=== PATIENT | male | born 1980 | race Caucasian/White ===

== ENCOUNTER 2022-02-06 22:43 | Emergency (ER) | payer MEDICAID, SELFPAY ==
--- NOTE | ~2022-02-06 | XR_ITS ---
EXAMINATION: XR CHEST CLINICAL INFORMATION: Altered mental status COMPARISON: 10/27/2015 TECHNIQUE: Frontal view of the chest was obtained. FINDINGS: No significant abnormality is noted involving the heart, lungs, mediastinum, bony thorax or soft tissues. XR/XR chest 1V IMPRESSION: Unremarkable examination.
--- NOTE | ~2022-02-06 | CT_ITS ---
EXAMINATION: CT HEAD WITHOUT CONTRAST CT CERVICAL SPINE WITHOUT CONTRAST CLINICAL INFORMATION: Fall. Altered mental status. COMPARISON: CT head 11/29/2019 TECHNIQUE: Imaging was performed from the skull base to vertex without intravenous administration of contrast. In addition, helical noncontrast CT imaging was acquired through the cervical spine and source images were reviewed along with axial reconstructions and sagittal and coronal MPRs. [This CT examination was performed using dose optimization techniques as appropriate, variously including the following: *Automated exposure control *Adjustment of mA and/or kV according to patient size (this includes techniques or standardized protocols for targeted exams where dose is matched to indication/reason for exam; i.e. extremities or head) *Use of iterative reconstruction technique] DLP: 1100 mGy-cm FINDINGS: HEAD: No intracranial mass, hemorrhage, or midline shift is visualized. The ventricles and sulci are proportional. No extra-axial collections are identified. Small volume of sinus mucosal disease in the posterior ethmoid sinuses. Mastoid air cells and middle ear cavities are normally aerated. CERVICAL SPINE: There is no evidence of acute cervical spine fracture. Vertebral bodies remain normal in height. Cervical vertebrae have normal alignment. There is multilevel degenerative spondylosis of the cervical spine with disc height narrowing and endplate spurs and facet joint arthrosis No pre- or paravertebral soft tissue abnormality is identified. Limited assessment of the lung apices is unremarkable. CT/CT cervical spine wo con IMPRESSION: 1. No acute intracranial pathology. 2. No CT evidence of acute cervical spine fracture or traumatic subluxation
--- NOTE | ~2022-02-06 | CT_ITS ---
EXAMINATION: CT HEAD WITHOUT CONTRAST CT CERVICAL SPINE WITHOUT CONTRAST CLINICAL INFORMATION: Fall. Altered mental status. COMPARISON: CT head 11/29/2019 TECHNIQUE: Imaging was performed from the skull base to vertex without intravenous administration of contrast. In addition, helical noncontrast CT imaging was acquired through the cervical spine and source images were reviewed along with axial reconstructions and sagittal and coronal MPRs. [This CT examination was performed using dose optimization techniques as appropriate, variously including the following: *Automated exposure control *Adjustment of mA and/or kV according to patient size (this includes techniques or standardized protocols for targeted exams where dose is matched to indication/reason for exam; i.e. extremities or head) *Use of iterative reconstruction technique] DLP: 1100 mGy-cm FINDINGS: HEAD: No intracranial mass, hemorrhage, or midline shift is visualized. The ventricles and sulci are proportional. No extra-axial collections are identified. Small volume of sinus mucosal disease in the posterior ethmoid sinuses. Mastoid air cells and middle ear cavities are normally aerated. CERVICAL SPINE: There is no evidence of acute cervical spine fracture. Vertebral bodies remain normal in height. Cervical vertebrae have normal alignment. There is multilevel degenerative spondylosis of the cervical spine with disc height narrowing and endplate spurs and facet joint arthrosis No pre- or paravertebral soft tissue abnormality is identified. Limited assessment of the lung apices is unremarkable. CT/CT head/brain wo con IMPRESSION: 1. No acute intracranial pathology. 2. No CT evidence of acute cervical spine fracture or traumatic subluxation
[2022-02-06 22:49] VITALS: BP 118/73; PULSE 112; RESP 10; TEMP 36.3; O2SAT 95
[2022-02-06 22:51] VITALS: BP 127/77; PULSE 142; O2SAT 95
[2022-02-06 22:55] VITALS: BP 118/73; PULSE 112; RESP 10; TEMP 36.6; O2SAT 95; BMI 23.1
--- NOTE | 2022-02-06 23:15 | ED_ITS ---
HPI - General Adult General Stated complaint: etoh Time Seen by Provider: 02/06/22 22:56 Related Data Allergies Allergy/AdvReac Type Severity Reaction Status Date / Time haloperidol [From HALDOL] Allergy Unknown UNKNOWN Unverified 05/06/20 17:23 Review of Systems Review of Systems: Constitutional : No Weight loss, No Fever, No Chills, No Fatigue, No Malaise ENT/Mouth : No sore throat, No Rhinorrhea Eyes: No Eye Pain, No Swelling, No Redness Cardiovascular : No Chest Pain, No SOB, No Dyspnea on Exertion, No Orthopnea, No Edema, No Palpitations Respiratory : No Cough, No Sputum, No Wheezing Gastrointestinal : No Nausea, No Vomiting, No Diarrhea, No Constipation, No abdominal Pain, No Hematochezia, No Melena Genitourinary : No Dysuria, No Urinary Frequency, No Hematuria, Musculoskeletal : No joint pain, No Myalgias, No Joint Swelling Skin : No Skin Lesions, No rash Neuro : No Weakness, No Numbness, No Dizziness, No Headache Psych : No Anxiety/Panic, No Depression Heme/Lymph: No Bruising, No Bleeding,No Lymphadenopathy Endocrine : No Polyuria, No Polydipsia All other systems reviewed and are negative Yes all other systems are reviewed and are negative [facility] Past Medical History Attestation statement: The following information was validated with the patient. Source: old records reviewed and nursing notes reviewed Physical Exam ED Vital Signs: Vital Signs - 24 hr 02/06/22 22:49 Temperature 97.4 F Pulse Rate 112 H Respiratory Rate 10 L Blood Pressure 118/73 Pulse Oximetry 95 Oxygen Delivery Method Room Air Patient is slightly tachycardic likely secondary to drug abuse. Appearance: Alert.? Oriented X3.? No acute distress.? Head: Normocephalic, atraumatic, no step-offs or deformities Eyes: Pupils equal, round and reactive to light.? ENT: Pharynx normal.? Neck: Normal inspection.? Neck supple.? CVS: Normal heart rate and rhythm.? Pulses normal.? Respiratory: No respiratory distress.? Breath sounds normal.? Abdomen: Soft and nontender.? Skin: Skin warm and dry.? Normal skin color.? Normal skin turgor.? Extremities: No lower extremity edema.? No calf ttp. 5/5 strength to bilateral upper and lower extremities Back: No midline tenderness, no C-spine tenderness, full range of motion, no CVA tenderness bilaterally Neuro: Oriented X 3.? No motor deficit.? No sensory deficit. CN 2-12 intact Medical Decision Making MDM Narrative Medical decision making narrative: [id number] Medical Records Medical records reviewed: Yes I reviewed the patient's medical records. Lab Data Lab results reviewed: Yes I reviewed the patient's lab results. Critical Care Time Critical Care Time Critical Care Time: No Discharge Plan Discharge Clinical Impression: Polysubstance abuse, Fall Patient Disposition: Home, Self-Care Instructions: Fall Prevention (ED), Polysubstance Abuse (ED) Additional Instructions: Take your medications as prescribed. If you were prescribed antibiotics today, it is important that you take your medication to their entirety, do not skip any doses, do not finish them early. Follow-up with your primary care provider this week. Return to the emergency department with new or worsening symptoms. Such as fevers, chills, chest pain, shortness of breath, nausea, vomiting, dizziness, headache, vision changes, lethargy In case of emergency call 911
--- NOTE | 2022-02-06 23:17 | ED.HA ---
HPI - Headache General Chief Complaint: ETOH/Substance Use Stated Complaint: etoh Time Seen by Provider: 02/06/22 22:56 Related Data Allergies Allergy/AdvReac Type Severity Reaction Status Date / Time haloperidol [From HALDOL] Allergy Unknown UNKNOWN Verified 02/07/22 01:08 [facility] Social History Social History Advance Directives: No Advance Directives Information Provided: No Physical Exam Vital Signs: Vital Signs: Last Vital Signs Temp 97.8 F 02/06/22 22:55 Pulse 89 02/07/22 01:24 Resp 12 02/07/22 01:24 BP 108/71 02/07/22 01:24 Pulse Ox 96 02/07/22 01:24 O2 Del Method 02/07/22 01:24 BMI result Body Mass Index 23.1 MDM - Headache Lab Data Result diagrams: 02/06/22 23:31 02/06/22 23:31 Labs: Lab Results 02/06/22 02/06/22 02/06/22 Range/Units 23:31 23:31 23:31 WBC 9.0 (4.8-10.8) X10*3/uL RBC 4.98 (4.60-5.80) X10*6/uL Hgb 14.3 (14.0-18.0) g/dl Hct 44.6 (42.0-52.0) % MCV 89.6 (80.0-98.0) fL MCH 28.7 (27.0-33.0) pg MCHC 32.1 (31.0-36.0) g/dl RDW 12.3 (11.0-16.0) % Plt Count 272 (160-400) X10*3/uL MPV 9.1 L (9.4-12.4) fL Immature Gran % (Auto) 0.2 (0.0-0.4) % Neut % (Auto) 38.8 L (45-73) % Lymph % (Auto) 51.2 H (20-40) % [place] % (Auto) 7.2 (2-11) % Eos % (Auto) 2.0 (0-4) % Baso % (Auto) 0.6 (0-2) % Lymph # (Auto) 4.6 (1.2-4.9) X10*3/uL [place] # (Auto) 0.7 (0.1-1.2) X10*3/uL Eos # (Auto) 0.2 (0.0-0.4) X10*3/uL Baso # (Auto) 0.1 (0.0-0.2) X10*3/uL Abs Immat Gran (auto) 0.02 (0.00-0.03) X10*3/uL Absolute Neuts (auto) 3.5 (2.0-8.3) x10*3/uL Absolute Nucleated RBC 0.000 (0.0-0.012) X10*3/uL Nucleated RBC % (auto) 0.0 (0.0-0.2) /100WBC Sodium 142 (135-145) mmol/L Potassium 4.7 (3.3-5.1) mmol/L Chloride 105 (96-108) mmol/L Carbon Dioxide 28 (22-29) mmol/L Anion Gap 14 (12-20) BUN 5 L (9-16) mg/dL Creatinine 1.12 (0.5-1.4) mg/dL Estim Creat Clear Calc TNP Estimated GFR > 60 Random Glucose 144 H (60-115) mg/dL Calcium 8.9 (8.4-10.2) mg/dL Magnesium 2.3 (1.6-2.6) mg/dL Total Bilirubin 0.2 (0.0-1.0) mg/dL AST 19 (5-37) U/L ALT 17 (0-40) U/L Alkaline Phosphatase 84 (39-117) U/L Total Creatine Kinase 162 (38-174) U/L Total Protein 7.5 (6.5-8.0) g/dL Albumin 4.6 (3.5-5.0) g/dL Ethyl Alcohol 262 mg/dL Discharge Plan Discharge Clinical Impression: Polysubstance abuse, Fall Patient Disposition: Home, Self-Care Instructions: Polysubstance Abuse (ED), Fall Prevention (ED) Additional Instructions: Take your medications as prescribed. If you were prescribed antibiotics today, it is important that you take your medication to their entirety, do not skip any doses, do not finish them early. Follow-up with your primary care provider this week. Return to the emergency department with new or worsening symptoms. Such as fevers, chills, chest pain, shortness of breath, nausea, vomiting, dizziness, headache, vision changes, lethargy In case of emergency call 911
[2022-02-06 23:35] LABS: MANUAL DIFF FLAG NO
[2022-02-06 23:37] LABS: Basophils Absolute Auto 0.1 X10*3/uL (0.0-0.2); Basophils Percent Auto 0.6 % (0-2); Eosinophils Absolute Auto 0.2 X10*3/uL (0.0-0.4); Hematocrit 44.6 % (42.0-52.0); Hemoglobin 14.3 g/dl (14.0-18.0); Imm Gran Abs Auto 0.02 X10*3/uL (0.00-0.03); Imm Gran Pct Auto 0.2 % (0.0-0.4); Lymphocytes Absolute Auto 4.6 X10*3/uL (1.2-4.9); Lymphocytes Percent Auto 51.2 % (20-40); Mean Corpuscular HGB Conc 32.1 g/dl (31.0-36.0); Mean Corpuscular Hemoglobin 28.7 pg (27.0-33.0); Mean Corpuscular Volume 89.6 fL (80.0-98.0); Mean Platelet Volume 9.1 fL (9.4-12.4); Monocytes Absolute Auto 0.7 X10*3/uL (0.1-1.2); Monocytes Percent Auto 7.2 % (2-11); Neutrophils Absolute Auto 3.5 x10*3/uL (2.0-8.3); Neutrophils Percent Auto 38.8 % (45-73); Platelet Count 272 X10*3/uL (160-400); Red Blood Count 4.98 X10*6/uL (4.60-5.80); Red Cell Distribution Width 12.3 % (11.0-16.0)
[2022-02-06 23:58] LABS: Ethanol 262 mg/dL
[2022-02-07] VITALS (7 sets, daily range): BP systolic 84–139; BP diastolic 51–84; PULSE 57–89; RESP 8–18; TEMP 36.8; O2SAT 94–100
[2022-02-07 00:02] LABS: Alanine Aminotransferase 17 U/L (0-40); Albumin Level 4.6 g/dL (3.5-5.0); Anion Gap 14 (12-20); Aspartate Amino Transferase 19 U/L (5-37); Bilirubin Total 0.2 mg/dL (0.0-1.0); Blood Urea Nitrogen 5 mg/dL (9-16); Calcium 8.9 mg/dL (8.4-10.2); Carbon Dioxide 28 mmol/L (22-29); Chloride 105 mmol/L (96-108); Estimated Glomerular Filt Rate > 60; Glucose Random 144 mg/dL (60-115); Magnesium 2.3 mg/dL (1.6-2.6); Potassium 4.7 mmol/L (3.3-5.1); Sodium 142 mmol/L (135-145); Total Protein 7.5 g/dL (6.5-8.0)
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
--- NOTE | 2022-02-07 00:07 | ECG_ITS ---
Test Reason : OVERDOSE Blood Pressure : / mmHG Vent. Rate : 085 BPM Atrial Rate : 085 BPM P-R Int : 202 ms QRS Dur : 096 ms QT Int : 350 ms P-R-T Axes : 073 077 067 degrees QTc Int : 416 ms Normal sinus rhythm Normal ECG When compared with ECG of 13-MAR-2013 09:17, Vent. rate has increased BY 34 BPM Referred By: Vu Willard Electronically Signed By:ERICK MOORE MD
--- NOTE | 2022-02-07 00:39 | PC.NURSE ---
pt family member called, notified pt. Pt refusing at this time for family members to have any information.
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
[2022-02-07 03:03] LABS: Appearance Urine CLEAR; Color Urine YELLOW; Glucose Urine UA NEG (NEG); Leukocyte Esterase Urine NEG (NEG); Nitrite Urine NEG (NEG); PH 5.5 (5.0-8.0); Specific Gravity - Urine >= 1.030 (1.005-1.025); Urine Blood NEG (NEG); Urine Ketones NEG (NEG); Urine Protein NEG (NEG-TRACE)
[2022-02-07 03:22] LABS: Amphetamine Screen Urine Not Detected (Not Detect); Barbiturates, Urine Not Detected (Not Detect); Benzodiazepines Screen Urine Not Detected (Not Detect); Cannabinoid Screen Urine Not Detected (Not Detect); Cocaine Screen Urine POSITIVE (Not Detect); Fentanyl, urine POSITIVE (Not Detect); Opiate Screen Urine POSITIVE (Not Detect); Phencyclidine Screen Urine Not Detected (Not Detect)
[2022-02-07] MEDS: 0.9 % Sodium Chloride 1,000 ML 999 ML IV (06:34)
[2022-02-07 07:02] LABS: COVID-19 Test Negative (Negative)
--- NOTE | 2022-02-07 08:12 | PC.NURSE ---
Pt resting comfortably at this time, no complaints of pain, BP on the lower side, but consistent trends. VS as charted, call cespedes within reach. Will continue to monitor.
[2022-02-07 12:16] LABS: Alkaline Phosphatase 84 U/L (39-117)
== END 2022-02-07 13:47 | disposition home or self-care (01) ==
PROVIDERS: Emergency Medicine; Physician Assistant; Emergency Provider Internal Medicine
DX: F10.129 Alcohol abuse with intoxication, unspecified (principal); R41.82 Altered mental status, unspecified; M54.2 Cervicalgia; R51.9 Headache, unspecified; Y90.8 Blood alcohol level of 240 mg/100 ml or more; Z20.822 Contact with and (suspected) exposure to COVID-19; Z71.41 Alcohol abuse counseling and surveillance of alcoholic; Z79.899 Other long term (current) drug therapy
CPT/HCPCS: 36415; 70450; 71045; 72125; 80053; 80307; 81003; 82077; 82550; 83735; 85025; 87635; 93005; 99285

== ENCOUNTER 2022-11-11 20:00 | Emergency (ER) | payer MEDICAID, SELFPAY ==
--- NOTE | ~2022-11-11 | XR_ITS ---
EXAMINATION: XR CHEST CLINICAL INFORMATION: Chest pain COMPARISON: 02/07/2022 TECHNIQUE: Frontal view of the chest was obtained. FINDINGS: No significant abnormality is noted involving the heart, lungs, mediastinum, bony thorax or soft tissues. XR/XR chest 1V IMPRESSION: Unremarkable examination.
[2022-11-11 20:10] VITALS: BP 107/69; PULSE 91; RESP 20; TEMP 36.9; O2SAT 97; BMI 22.3
--- NOTE | 2022-11-11 20:13 | ED.URI ---
HPI - URI/Sore Throat General Chief Complaint: Dyspnea <SHIV Joseph - Last Filed: 11/11/22 20:16> Stated Complaint: SOB , Fatigue <SHIV Joseph - Last Filed: 11/11/22 20:16> Time Seen by Provider: 11/11/22 22:26 <SHIV Joseph - Last Filed: 11/11/22 20:16> Source: patient <Harry Carrion MD - Last Filed: 11/11/22 23:05> Mode of arrival: ambulatory <Harry Carrion MD - Last Filed: 11/11/22 23:05> Limitations: no limitations <Harry Carrion MD - Last Filed: 11/11/22 23:05> History of Present Illness HPI Narrative: 42-year-old male with no major medical problems currently on Suboxone presents with shortness of breath, cough and pleuritic chest pain for 2-3 weeks. Symptoms have been constant. They are not getting worse. He denies any chest pain with exertion. He denies any orthopnea, PND, lower extremity edema. He denies any recent trauma, surgeries or immobilization. He has no history of PE or DVT. He denies any fever. He does have a slight cough with yellow mucus production. There is no hemoptysis patient describes the symptoms as moderate to severe in nature. There is no clear relieving or exacerbating features. Patient denies any sick contacts. <Harry Carrion MD - Last Filed: 11/11/22 23:05> Related Data Home Medications: Previous Rx's Medication Instructions Recorded azithromycin 250 mg tablet 250 mg PO DAILY 4 days #4 tabs 11/11/22 <SHIV Joseph - Last Filed: 11/11/22 20:16> Allergies/Adverse Reactions: Allergies Allergy/AdvReac Type Severity Reaction Status Date / Time haloperidol [From HALDOL] Allergy Unknown UNKNOWN Verified 05/31/22 15:37 <SHIV Joseph - Last Filed: 11/11/22 20:16> [facility] Social History Social History: Social History Alcohol intake: current Alcohol intake frequency: 0-2 drinks per day Alcohol type: hard liquor Patient Tobacco Use Status: Current everyday Tobacco user Advance Directives: No Advance Directives Information Provided: No <SHIV Joseph - Last Filed: 11/11/22 20:16> Physical Exam Vital Signs: Vital Signs: Last Vital Signs Temp 98.4 F 11/11/22 20:10 Pulse 91 11/11/22 20:10 Resp 20 11/11/22 20:10 BP 107/69 11/11/22 20:10 Pulse Ox 97 11/11/22 20:10 O2 Del Method Room Air 11/11/22 20:10 BMI result Body Mass Index 22.3 <SHIV Joseph - Last Filed: 11/11/22 20:16> Vital Signs: Last Vital Signs Temp 98.4 F 11/11/22 20:10 Pulse 91 11/11/22 20:10 Resp 20 11/11/22 20:10 BP 107/69 11/11/22 20:10 Pulse Ox 97 11/11/22 20:10 O2 Del Method Room Air 11/11/22 20:10 BMI result Body Mass Index 22.3 <Harry Carrion MD - Last Filed: 11/11/22 23:05> GEN: Well developed, no acute distress, alert, oriented HEENT: Normocephalic, atraumatic, normal external ears, nose appears normal, no oropharyngeal edema or exudates Eyes: Normal to appearance Neck: Supple, no lymphadenopathy Respiratory: Talks in complete sentences, no respiratory distress, clear to auscultation bilaterally Cardiovascular: Regular rate and rhythm, no murmurs rubs or gallops Abdomen: Soft, nontender, nondistended, no guarding, no rebound Back: No CVA tenderness Extremities: No clubbing cyanosis or edema Neurologic: No focal neurologic deficits, cranial nerves 2-12 intact, strength is 5/5 bilaterally, gait normal Skin: No rash <Harry Carrion MD - Last Filed: 11/11/22 23:05> Course Course Course Narrative: RME--42yo M w/PMHx Hep C, cigarette smoker, c/o chest pain, SOB, and fatigue x2 weeks. Reports shortness of breath worse when lying flat. Denies pedal edema, fever Vital signs stable, nontoxic appearing, ambulating with steady gait EKG, labs, CXR, COVID/flu ordered <SHIV Joseph - Last Filed: 11/11/22 20:16> Reevaluation(s) Reevaluation #1: Patient's workup is complete. He has no evidence of pneumonia. He has negative serology for flu or COVID. Patient does have a mildly elevated white blood cell count. Given 2-3 weeks of symptoms, would recommend treating with oral antibiotics. Patient is agreeable to this. Doubt PE or DVT. He has negative PERC criteria. He has no lower extremity edema. Patient has no evidence of CHF. I discussed all results with the patient. I discussed discharge instructions. All questions were addressed and answered. <Harry Carrion MD - Last Filed: 11/11/22 23:05> Time: 23:01 <Harry Carrion MD - Last Filed: 11/11/22 23:05> Medical Decision Making Medical Decision Making [facility] Narrative: 42-year-old male presents with cough and shortness of breath pleuritic chest pain for 2-3 weeks. His examination is benign. He is hemodynamically stable with normal oxygen saturation on room air. He has nonlabored respirations. Most likely, patient has bronchitis given the duration of the symptoms. Patient will have a chest x-ray to rule out pneumonia. Will obtain laboratory analysis to rule out leukocytosis or other metabolic abnormality. Will check COVID and influenza. <Harry Carrion MD - Last Filed: 11/11/22 23:05> Differential Diagnosis Differential Diagnoses: The differential diagnosis associated with the presentation includes (Bronchitis, viral infection, COVID, influenza, parainfluenza, CHF) <Harry Carrion MD - Last Filed: 11/11/22 23:05> Bronchitis <Harry Carrion MD - Last Filed: 11/11/22 23:05> Admission/Observation Consideration of admission/observation: Escalation of care including admission/observation considered <Harry Carrion MD - Last Filed: 11/11/22 23:05> Lab Data [facility] Lab Attestation statement: I reviewed the patient's lab results. <Harry Carrion MD - Last Filed: 11/11/22 23:05> Result Diagrams: 11/11/22 21:14 11/11/22 21:14 <SHIV Joseph - Last Filed: 11/11/22 20:16> Labs: Lab Results 03/11/11/22 11/11/22 Range/Units 21:14 21:14 21:14 WBC 13.2 H (4.8-10.8) X10*3/uL RBC 5.21 (4.60-5.80) X10*6/uL Hgb 14.8 (14.0-18.0) g/dl Hct 45.4 (42.0-52.0) % MCV 87.1 (80.0-98.0) fL MCH 28.4 (27.0-33.0) pg MCHC 32.6 (31.0-36.0) g/dl RDW 12.2 (11.0-16.0) % Plt Count 265 (160-400) X10*3/uL MPV 9.6 (9.4-12.4) fL Immature Gran % (Auto) 0.2 (0.0-0.4) % Neut % (Auto) 70.8 (45-73) % Lymph % (Auto) 18.2 L (20-40) % [place] % (Auto) 7.5 (2-11) % Eos % (Auto) 2.9 (0-4) % Baso % (Auto) 0.4 (0-2) % Lymph # (Auto) 2.4 (1.2-4.9) X10*3/uL [place] # (Auto) 1.0 (0.1-1.2) X10*3/uL Eos # (Auto) 0.4 (0.0-0.4) X10*3/uL Baso # (Auto) 0.1 (0.0-0.2) X10*3/uL Abs Immat Gran (auto) 0.03 (0.00-0.03) X10*3/uL Absolute Neuts (auto) 9.4 H (2.0-8.3) x10*3/uL Absolute Nucleated RBC 0.000 (0.0-0.012) X10*3/uL Nucleated RBC % (auto) 0.0 (0.0-0.2) /100WBC Sodium 141 (135-145) mmol/L Potassium 4.6 (3.3-5.1) mmol/L Chloride 105 (96-108) mmol/L Carbon Dioxide 27 (22-29) mmol/L Anion Gap 14 (12-20) BUN 19 H (9-16) mg/dL Creatinine 1.11 (0.5-1.4) mg/dL Estim Creat Clear Calc 87.1 Estimated GFR > 60 Random Glucose 96 (60-115) mg/dL Calcium 9.6 D (8.4-10.2) mg/dL Total Bilirubin 1.3 H (0.0-1.0) mg/dL Direct Bilirubin 0.3 (0.0-0.5) mg/dL AST 14 (5-37) U/L ALT 13 (0-40) U/L Alkaline Phosphatase 74 (39-117) U/L Troponin I High Sens 4.3 (<3.5-35.0) ng/L B-Natriuretic Peptide (<100) pg/mL Total Protein 7.5 (6.5-8.0) g/dL Albumin 4.8 (3.5-5.0) g/dL COVID-19 (AZAR) (Negative) COVID-19 Clin Com Influenza Type A (CARMEN) (Negative) Influenza Type B (CARMEN) (Negative) Influenza A & B Note 11/11/22 11/11/22 11/11/22 Range/Units 21:14 21:14 21:14 WBC (4.8-10.8) X10*3/uL RBC (4.60-5.80) X10*6/uL Hgb (14.0-18.0) g/dl Hct (42.0-52.0) % MCV (80.0-98.0) fL MCH (27.0-33.0) pg MCHC (31.0-36.0) g/dl RDW (11.0-16.0) % Plt Count (160-400) X10*3/uL MPV (9.4-12.4) fL Immature Gran % (Auto) (0.0-0.4) % Neut % (Auto) (45-73) % Lymph % (Auto) (20-40) % [place] % (Auto) (2-11) % Eos % (Auto) (0-4) % Baso % (Auto) (0-2) % Lymph # (Auto) (1.2-4.9) X10*3/uL [place] # (Auto) (0.1-1.2) X10*3/uL Eos # (Auto) (0.0-0.4) X10*3/uL Baso # (Auto) (0.0-0.2) X10*3/uL Abs Immat Gran (auto) (0.00-0.03) X10*3/uL Absolute Neuts (auto) (2.0-8.3) x10*3/uL Absolute Nucleated RBC (0.0-0.012) X10*3/uL Nucleated RBC % (auto) (0.0-0.2) /100WBC Sodium (135-145) mmol/L Potassium (3.3-5.1) mmol/L Chloride (96-108) mmol/L Carbon Dioxide (22-29) mmol/L Anion Gap (12-20) BUN (9-16) mg/dL Creatinine (0.5-1.4) mg/dL Estim Creat Clear Calc Estimated GFR Random Glucose (60-115) mg/dL Calcium (8.4-10.2) mg/dL Total Bilirubin (0.0-1.0) mg/dL Direct Bilirubin (0.0-0.5) mg/dL AST (5-37) U/L ALT (0-40) U/L Alkaline Phosphatase (39-117) U/L Troponin I High Sens (<3.5-35.0) ng/L B-Natriuretic Peptide < 10 (<100) pg/mL Total Protein (6.5-8.0) g/dL Albumin (3.5-5.0) g/dL COVID-19 (AZAR) Negative (Negative) COVID-19 Clin Com See Note Influenza Type A (CARMEN) Negative (Negative) Influenza Type B (CARMEN) Negative (Negative) Influenza A & B Note See Note <SHIV Joseph - Last Filed: 11/11/22 20:16> Lab Results 11/11/22 11/11/22 11/11/22 Range/Units 21:14 21:14 21:14 WBC 13.2 H (4.8-10.8) X10*3/uL RBC 5.21 (4.60-5.80) X10*6/uL Hgb 14.8 (14.0-18.0) g/dl Hct 45.4 (42.0-52.0) % MCV 87.1 (80.0-98.0) fL MCH 28.4 (27.0-33.0) pg MCHC 32.6 (31.0-36.0) g/dl RDW 12.2 (11.0-16.0) % Plt Count 265 (160-400) X10*3/uL MPV 9.6 (9.4-12.4) fL Immature Gran % (Auto) 0.2 (0.0-0.4) % Neut % (Auto) 70.8 (45-73) % Lymph % (Auto) 18.2 L (20-40) % [place] % (Auto) 7.5 (2-11) % Eos % (Auto) 2.9 (0-4) % Baso % (Auto) 0.4 (0-2) % Lymph # (Auto) 2.4 (1.2-4.9) X10*3/uL [place] # (Auto) 1.0 (0.1-1.2) X10*3/uL Eos # (Auto) 0.4 (0.0-0.4) X10*3/uL Baso # (Auto) 0.1 (0.0-0.2) X10*3/uL Abs Immat Gran (auto) 0.03 (0.00-0.03) X10*3/uL Absolute Neuts (auto) 9.4 H (2.0-8.3) x10*3/uL Absolute Nucleated RBC 0.000 (0.0-0.012) X10*3/uL Nucleated RBC % (auto) 0.0 (0.0-0.2) /100WBC Sodium 141 (135-145) mmol/L Potassium 4.6 (3.3-5.1) mmol/L Chloride 105 (96-108) mmol/L Carbon Dioxide 27 (22-29) mmol/L Anion Gap 14 (12-20) BUN 19 H (9-16) mg/dL Creatinine 1.11 (0.5-1.4) mg/dL Estim Creat Clear Calc 87.1 Estimated GFR > 60 Random Glucose 96 (60-115) mg/dL Calcium 9.6 D (8.4-10.2) mg/dL Total Bilirubin 1.3 H (0.0-1.0) mg/dL Direct Bilirubin 0.3 (0.0-0.5) mg/dL AST 14 (5-37) U/L ALT 13 (0-40) U/L Alkaline Phosphatase 74 (39-117) U/L Troponin I High Sens 4.3 (<3.5-35.0) ng/L B-Natriuretic Peptide (<100) pg/mL Total Protein 7.5 (6.5-8.0) g/dL Albumin 4.8 (3.5-5.0) g/dL COVID-19 (AZAR) (Negative) COVID-19 Clin Com Influenza Type A (CARMEN) (Negative) Influenza Type B (CARMEN) (Negative) Influenza A & B Note 11/11/22 11/11/22 11/11/22 Range/Units 21:14 21:14 21:14 WBC (4.8-10.8) X10*3/uL RBC (4.60-5.80) X10*6/uL Hgb (14.0-18.0) g/dl Hct (42.0-52.0) % MCV (80.0-98.0) fL MCH (27.0-33.0) pg MCHC (31.0-36.0) g/dl RDW (11.0-16.0) % Plt Count (160-400) X10*3/uL MPV (9.4-12.4) fL Immature Gran % (Auto) (0.0-0.4) % Neut % (Auto) (45-73) % Lymph % (Auto) (20-40) % [place] % (Auto) (2-11) % Eos % (Auto) (0-4) % Baso % (Auto) (0-2) % Lymph # (Auto) (1.2-4.9) X10*3/uL [place] # (Auto) (0.1-1.2) X10*3/uL Eos # (Auto) (0.0-0.4) X10*3/uL Baso # (Auto) (0.0-0.2) X10*3/uL Abs Immat Gran (auto) (0.00-0.03) X10*3/uL Absolute Neuts (auto) (2.0-8.3) x10*3/uL Absolute Nucleated RBC (0.0-0.012) X10*3/uL Nucleated RBC % (auto) (0.0-0.2) /100WBC Sodium (135-145) mmol/L Potassium (3.3-5.1) mmol/L Chloride (96-108) mmol/L Carbon Dioxide (22-29) mmol/L Anion Gap (12-20) BUN (9-16) mg/dL Creatinine (0.5-1.4) mg/dL Estim Creat Clear Calc Estimated GFR Random Glucose (60-115) mg/dL Calcium (8.4-10.2) mg/dL Total Bilirubin (0.0-1.0) mg/dL Direct Bilirubin (0.0-0.5) mg/dL AST (5-37) U/L ALT (0-40) U/L Alkaline Phosphatase (39-117) U/L Troponin I High Sens (<3.5-35.0) ng/L B-Natriuretic Peptide < 10 (<100) pg/mL Total Protein (6.5-8.0) g/dL Albumin (3.5-5.0) g/dL COVID-19 (AZAR) Negative (Negative) COVID-19 Clin Com See Note Influenza Type A (CARMEN) Negative (Negative) Influenza Type B (CARMEN) Negative (Negative) Influenza A & B Note See Note <Harry Carrion MD - Last Filed: 11/11/22 23:05> Independent Interpretation I performed an independent interpretation of an: EKG (Normal sinus rhythm heart rate 58, normal intervals, RSR prime, early repolarization, no acute ST elevations or depressions) and Plain X-Ray (Chest: No acute cardiopulmonary disease) <Harry Carrion MD - Last Filed: 11/11/22 23:05> Radiology Impression Discussion of test interpretation with radiology: I have reviewed the radiologist's reading. ( XR/XR chest 1V IMPRESSION: Unremarkable examination. Dictated By:Regino Hernandezigned By:<Electronically signed by Regino Hernandez MD in [place]>11/11/222038) <Harry Carrion MD - Last Filed: 11/11/22 23:05> Prescription Management I considered prescription management with: Antibiotic <Harry Carrion MD - Last Filed: 11/11/22 23:05> Discharge Plan Discharge Clinical Impression: Bronchitis <SHIV Joseph - Last Filed: 11/11/22 20:16> Patient Disposition: Home, Self-Care <SHIV Joseph - Last Filed: 11/11/22 20:16> Instructions: Acute Bronchitis (ED) <SHIV Joseph - Last Filed: 11/11/22 20:16> Prescriptions: New azithromycin 250 mg tablet 250 mg PO DAILY 4 Days Qty: 4 0RF Rx Instructions: start on day 2 of therapy <SHIV Joseph - Last Filed: 11/11/22 20:16> Print Language: [place] Citizen <SHIV Joseph - Last Filed: 11/11/22 20:16>
--- NOTE | 2022-11-11 20:14 | ECG_ITS ---
Test Reason : SHORTNESS OF BREATH Blood Pressure : / mmHG Vent. Rate : 058 BPM Atrial Rate : 058 BPM P-R Int : 176 ms QRS Dur : 092 ms QT Int : 374 ms P-R-T Axes : 080 082 073 degrees QTc Int : 367 ms Sinus bradycardia Otherwise normal ECG When compared with ECG of 07-FEB-2022 00:11, No significant change was found Referred By: Lia Weber Electronically Signed By:ERICK MOORE MD
[2022-11-11 21:20] LABS: MANUAL DIFF FLAG NO
[2022-11-11 21:30] LABS: Basophils Absolute Auto 0.1 X10*3/uL (0.0-0.2); Basophils Percent Auto 0.4 % (0-2); Eosinophils Absolute Auto 0.4 X10*3/uL (0.0-0.4); Eosinophils Percent Auto 2.9 % (0-4); Hematocrit 45.4 % (42.0-52.0); Hemoglobin 14.8 g/dl (14.0-18.0); Imm Gran Abs Auto 0.03 X10*3/uL (0.00-0.03); Imm Gran Pct Auto 0.2 % (0.0-0.4); Lymphocytes Absolute Auto 2.4 X10*3/uL (1.2-4.9); Lymphocytes Percent Auto 18.2 % (20-40); Mean Corpuscular HGB Conc 32.6 g/dl (31.0-36.0); Mean Corpuscular Hemoglobin 28.4 pg (27.0-33.0); Mean Corpuscular Volume 87.1 fL (80.0-98.0); Mean Platelet Volume 9.6 fL (9.4-12.4); Monocytes Percent Auto 7.5 % (2-11); Neutrophils Absolute Auto 9.4 x10*3/uL (2.0-8.3); Neutrophils Percent Auto 70.8 % (45-73); Platelet Count 265 X10*3/uL (160-400); Red Blood Count 5.21 X10*6/uL (4.60-5.80); Red Cell Distribution Width 12.2 % (11.0-16.0); White Blood Count 13.2 X10*3/uL (4.8-10.8)
[2022-11-11 21:40] LABS: Alanine Aminotransferase 13 U/L (0-40); Albumin Level 4.8 g/dL (3.5-5.0); Alkaline Phosphatase 74 U/L (39-117); Anion Gap 14 (12-20); Aspartate Amino Transferase 14 U/L (5-37); Bilirubin Direct 0.3 mg/dL (0.0-0.5); Bilirubin Total 1.3 mg/dL (0.0-1.0); Blood Urea Nitrogen 19 mg/dL (9-16); Calcium 9.6 mg/dL (8.4-10.2); Carbon Dioxide 27 mmol/L (22-29); Chloride 105 mmol/L (96-108); Creatinine Clr Calc Pharmacy 87.1; Estimated Glomerular Filt Rate > 60; Glucose Random 96 mg/dL (60-115); Potassium 4.6 mmol/L (3.3-5.1); Sodium 141 mmol/L (135-145); Total Protein 7.5 g/dL (6.5-8.0)
[2022-11-11 21:46] LABS: B Type Natriuretic Peptide < 10 pg/mL (<100); Troponin-I High Sensitivity 4.3 ng/L (<3.5-35.0)
[2022-11-11 22:07] LABS: COVID-19 Test Negative (Negative); IDNOW Serial# 08D9AD1C; IDNOW Serial# BCCEAD1C; Influenza A Negative (Negative); Influenza B2 Negative (Negative)
[2022-11-11 23:09] VITALS: BP 106/77; PULSE 83; RESP 12; TEMP 36.7; O2SAT 95
[2022-11-11] MEDS: Azithromycin 500 MG TABLET PO (23:13)
== END 2022-11-11 23:33 | disposition home or self-care (01) ==
PROVIDERS: Physician Assistant; Emergency Provider Emergency Medicine
DX: J40 Bronchitis, not specified as acute or chronic (principal); Z20.822 Contact with and (suspected) exposure to COVID-19; R06.02 Shortness of breath; F11.20 Opioid dependence, uncomplicated
CPT/HCPCS: 71045; 80048; 80076; 83880; 84484; 85025; 87502; 87635; 93005; 99283; 99284

== ENCOUNTER 2023-04-10 14:10 | Outpatient (REF) | payer MEDICAID, SELFPAY ==
[2023-04-10 16:51] LABS: Alanine Aminotransferase 17 U/L (0-40); Albumin Level 4.3 g/dL (3.5-5.0); Alkaline Phosphatase 73 U/L (39-117); Aspartate Amino Transferase 15 U/L (5-37); Bilirubin Direct 0.1 mg/dL (0.0-0.5); Bilirubin Total 0.6 mg/dL (0.0-1.0); Total Protein 7.5 g/dL (6.5-8.0)
[2023-04-11 03:58] LABS: HIV AB/AG Nonreactive (Nonreactive); HIV Num 1 0.05 S/CO (0.00-0.99)
[2023-04-11 04:01] LABS: ~HepC Num1 14.65 S/CO (0.00-0.79); ~Hepatitis C Antibody Reactive (Nonreactive)
[2023-04-11 04:11] LABS: Syphilis Screen Nonreactive (Nonreactive)
[2023-04-12 20:34] LABS: TS Negative Control Passed; TS Panel A 0; TS Panel B 6; TS Positive Control Passed; TSpotTB Borderline (Negative)
[2023-04-13 15:48] LABS: HCV Log PCR <1.18 NOT DETECTED Log IU/mL (NOT DETECTED); HepC Viral Load <15 NOT DETECTED IU/mL (NOT DETECTED)
== END 2023-04-10 14:11 | disposition home or self-care (01) ==
LOC: HO.HHCL 14:10
PROVIDERS: Visit Provider Emergency Medicine
DX: F11.20 Opioid dependence, uncomplicated (principal)
CPT/HCPCS: 36415; 80076; 86481; 86780; 86803; 87389; 87522

== ENCOUNTER 2023-04-25 00:05 | Emergency (ER) | payer MEDICAID, SELFPAY ==
[2023-04-25 00:28] VITALS: BP 106/72; PULSE 64; RESP 20; TEMP 36.6; O2SAT 98; BMI 28.3
[2023-04-25 00:52] LABS: Hemoglobin 13.3 g/dl (14.0-18.0); Mean Corpuscular HGB Conc 31.7 g/dl (31.0-36.0); Mean Corpuscular Hemoglobin 28.1 pg (27.0-33.0); Mean Corpuscular Volume 88.8 fL (80.0-98.0); Mean Platelet Volume 9.4 fL (9.4-12.4); Platelet Count 249 X10*3/uL (160-400); Red Blood Count 4.73 X10*6/uL (4.60-5.80); Red Cell Distribution Width 12.5 % (11.0-16.0)
[2023-04-25 00:58] LABS: Appearance Urine Clear; Color Urine Yellow; Glucose Urine UA Negative (Negative); Leukocyte Esterase Urine Negative (Negative); Nitrite Urine Negative (Negative); PH 5.5 (5.0-9.0); Urine Blood Negative (Negative); Urine Ketones Negative (Negative); Urine Protein Negative (Neg-Trace)
[2023-04-25 01:04] LABS: Bacteria Urine None Seen (None Seen); Hyaline Casts Urine 0-2 /LPF (0-2); RBC Urine 0-2 /HPF (0-2); Squamous Epithelial Cell Urine 0-2 /HPF (0-2); WBC Urine 0-5 /HPF (0-5)
[2023-04-25 01:07] LABS: Amphetamine Screen Urine Not Detected (Not Detect); Barbiturates, Urine Not Detected (Not Detect); Benzodiazepines Screen Urine Not Detected (Not Detect); Cannabinoid Screen Urine Not Detected (Not Detect); Cocaine Screen Urine Not Detected (Not Detect); Fentanyl, urine Not Detected (Not Detect); Opiate Screen Urine Not Detected (Not Detect); Phencyclidine Screen Urine Not Detected (Not Detect)
[2023-04-25 01:15] LABS: Alanine Aminotransferase 12 U/L (0-40); Albumin Level 4.2 g/dL (3.5-5.0); Alkaline Phosphatase 67 U/L (39-117); Anion Gap 10 (12-20); Aspartate Amino Transferase 16 U/L (5-37); Bilirubin Total 0.3 mg/dL (0.0-1.0); Blood Urea Nitrogen 14 mg/dL (9-16); Carbon Dioxide 29 mmol/L (22-29); Chloride 106 mmol/L (96-108); Creatinine Clr Calc Pharmacy 91.2; Estimated Glomerular Filt Rate > 60; Glucose Random 103 mg/dL (60-115); Lipase 14 U/L (8-78); Potassium 4.1 mmol/L (3.3-5.1); Sodium 141 mmol/L (135-145)
== END 2023-04-25 06:16 | disposition left against medical advice (07) ==
PROVIDERS: Emergency Provider Emergency Medicine
DX: R10.9 Unspecified abdominal pain (principal)
CPT/HCPCS: 36415; 80053; 80307; 81001; 83690; 85027; 99282; 99283

== ENCOUNTER 2023-07-03 14:07 | Outpatient (REF) | payer MEDICAID, SELFPAY ==
[2023-07-06 08:53] LABS: TS Negative Control Passed; TS Panel A 0; TS Panel B 0; TS Positive Control Passed; TSpotTB Negative (Negative)
== END 2023-07-03 14:08 | disposition home or self-care (01) ==
LOC: HO.HHCL 14:07
PROVIDERS: Visit Provider Emergency Medicine
DX: Z11.1 Encounter for screening for respiratory tuberculosis (principal); F11.20 Opioid dependence, uncomplicated
CPT/HCPCS: 36415; 86481

== ENCOUNTER 2023-09-21 11:24 | Outpatient (REF) | payer MEDICAID, SELFPAY ==
[2023-09-21 13:42] LABS: Hematocrit 43.6 % (42.0-52.0); Mean Corpuscular HGB Conc 32.1 g/dl (31.0-36.0); Mean Corpuscular Volume 87.2 fL (80.0-98.0); Mean Platelet Volume 10.2 fL (9.4-12.4); Platelet Count 232 X10*3/uL (160-400); Red Cell Distribution Width 12.6 % (11.0-16.0); White Blood Count 6.9 X10*3/uL (4.8-10.8)
[2023-09-21 14:21] LABS: Alanine Aminotransferase 20 U/L (0-40); Albumin Level 4.3 g/dL (3.5-5.0); Alkaline Phosphatase 67 U/L (39-117); Anion Gap 13 (12-20); Aspartate Amino Transferase 16 U/L (5-37); Bilirubin Total 0.7 mg/dL (0.0-1.0); Blood Urea Nitrogen 15 mg/dL (9-16); Calcium 9.4 mg/dL (8.4-10.2); Carbon Dioxide 27 mmol/L (22-29); Chloride 105 mmol/L (96-108); Cholesterol 156 mg/dL (<200); Estimated Glomerular Filt Rate > 60; Glucose Random 97 mg/dL (60-115); HDL Cholesterol 28 mg/dL (>40); LDL Cholesterol Calculated 87 mg/dL (<100); Potassium 4.7 mmol/L (3.3-5.1); Sodium 140 mmol/L (135-145); TSH reflex Free T4 1.71 uIU/mL (0.32-4.0); Total Protein 7.4 g/dL (6.5-8.0); Triglycerides 206 mg/dL (<150); Vitamin D 25-OH Total 31.1 ng/mL (>30)
[2023-09-21 14:27] LABS: Amphetamine Screen Urine Not Detected (Not Detect); Barbiturates, Urine Not Detected (Not Detect); Benzodiazepines Screen Urine Not Detected (Not Detect); Cannabinoid Screen Urine Not Detected (Not Detect); Cocaine Screen Urine Not Detected (Not Detect); Fentanyl, urine Not Detected (Not Detect); Opiate Screen Urine Not Detected (Not Detect); Phencyclidine Screen Urine Not Detected (Not Detect)
[2023-09-21 15:12] LABS: Estimated Average Glucose 111 mg/dL; Hemoglobin A1c % 5.5 % (<6.0)
[2023-09-21 16:51] LABS: CT PCR NOT DETECTED (Not Detect.); NG PCR NOT DETECTED (Not Detect.)
[2023-09-22 04:16] LABS: Syphilis Screen Nonreactive (Nonreactive)
[2023-09-22 04:39] LABS: HBS Num1 > 1000.00 mIU/mL (0-7.99); HBsAGNum1 0.36 S/CO (0.00-0.99); HIV AB/AG Nonreactive (Nonreactive); HIV Num 1 0.05 S/CO (0.00-0.99); Hepatitis B Core Antibody Nonreactive (Nonreactive); Hepatitis B Surface Antigen Negative (Negative); ~Hepatitis B Surface Antibody REACTIVE (Nonreactive)
[2023-09-24 14:58] LABS: TS Negative Control Passed; TS Panel A 0; TS Panel B 0; TS Positive Control Passed; TSpotTB Negative (Negative)
== END 2023-09-21 11:25 | disposition home or self-care (01) ==
LOC: HO.HHCL 11:24
PROVIDERS: Referring Provider Emergency Medicine; Visit Provider Student in an Organized Health Care Education/Training Program
DX: Z00.00 Encounter for general adult medical examination without abnormal findings (principal); F11.20 Opioid dependence, uncomplicated
CPT/HCPCS: 0353U; 36415; 80053; 80061; 80307; 82306; 83036; 84443; 85027; 86481; 86704; 86706; 86780; 87340; 87389

== ENCOUNTER 2024-09-04 07:24 | Emergency (ER) | payer MEDICAID, SELFPAY ==
--- NOTE | ~2024-09-04 | XR_ITS ---
EXAMINATION: XR CHEST CLINICAL INFORMATION: Cough x 1 month COMPARISON: X-ray dated November 11, 2022 TECHNIQUE: 2 views of the chest were obtained. FINDINGS: Hyperinflated lungs. No consolidation, pleural effusion or pneumothorax. Cardiomediastinal silhouette is normal in size. Osseous structures are intact. XR/XR chest 2V IMPRESSION: No acute airspace disease. Hyperinflated lungs. Electronically signed by: Guilherme Quiroga MD 09/04/2024 08:01 AM AIME
[2024-09-04 07:27] VITALS: BP 106/65; PULSE 85; RESP 16; TEMP 36.7; O2SAT 97; BMI 25.2
[2024-09-04 08:35] LABS: Influenza A PCR NEGATIVE (Negative); Influenza B PCR NEGATIVE (Negative); Resp Syncy Virus RNA Qual PCR NEGATIVE (Negative); SARS COV2 PCR INHOUSE NEGATIVE (Negative)
--- NOTE | 2024-09-04 09:38 | ED_ITS ---
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 Denies fevers, chest pain, palpitations. Reports he initially had body aches at onset of symptoms which have since resolved. complaint: cough Onset (ago): month(s) Treatments prior to arrival: none Related Data Previous Rx's ?Medication ?Instructions ?Recorded azithromycin 250 mg tablet 250 mg PO DAILY 4 days #4 tabs 11/11/22 albuterol sulfate 90 mcg/actuation 2 puff inhalation Q4-6H PRN 09/04/24 aerosol inhaler shortness of breath or wheezing #6.7 grams azithromycin 250 mg tablet See Rx Instructions PO .COMPLEX #6 09/04/24 tabs prednisone 20 mg tablet 40 mg (2 x 20 mg) PO DAILY #10 tabs 09/04/24 Allergies Allergy/AdvReac Type Severity Reaction Status Date / Time haloperidol [From HALDOL] Allergy Unknown UNKNOWN Verified 09/04/24 07:31 Review of Systems Review of Systems: As per HPI Yes all other systems are reviewed and are negative Constitutional: Constitutional: Reports as per HPI [facility] Social History Social History Alcohol intake: current Alcohol intake frequency: 0-2 drinks per day Alcohol type: hard liquor Patient Tobacco Use Status: Current everyday Tobacco user Advance Directives: No Advance Directives Information Provided: No Physical Exam ED Vital Signs: Vital Signs - 24 hr 09/04/24 07:27 Temperature 98.1 F Pulse Rate 85 Respiratory Rate 16 Blood Pressure 106/65 Pulse Oximetry 97 Oxygen Delivery Method Room Air BMI result Body Mass Index 25.2 Vital signs have been reviewed and appear to be correct. Blood pressure normal. Heart rate normal. Respiratory rate normal. Temperature normal. Oxygen saturation normal. Const General: cooperative, healthy appearing and no acute distress Orientation/consciousness: oriented to person, oriented to place, oriented to time and patient oriented x3 Limitations: no limitations HENMT Head: Yes normocephalic and Yes atraumatic Ears: external ears normal General nose exam: Normal external nose present Face and sinus: Yes face symmetric Mouth: oropharynx normal and moist mucous membranes Throat: Yes uvula midline Eyes Pupils: Equal, round and reactive pupils present Neck Neck: Yes normal visual inspection and Yes supple Resp Effort & Inspection: normal respiratory effort and able to speak in complete sentences Auscultation: clear to auscultation bilaterally and wheezes scattered wheezes Cardio Rate: regular rate Rhythm: regular rhythm Heart sounds: S1 normal heart sound present and S2 normal heart sound present GI Palpation (GI): Soft to palpation and nontender Auscultation: normoactive bowel sounds General: Yes no CVA tenderness Back/Spine/Pelvis Back: no CVA tenderness Skin General skin exam: elasticity normal and turgor normal Neuro General: oriented to person, oriented to place, oriented to time, patient oriented x3, moves all extremities, no focal motor deficits and CN's II-XI intact bilaterally Cranial nerves: Yes Equal, round and reactive pupils present Cognition (Neuro): normal cognition Extrem General: Yes full ROM, Yes no pedal edema and Yes no calf tenderness Psych Mental Status: mental status grossly normal Affect: normal affect Thought process: Normal thought process present Medical Decision Making Medical Decision Making [facility] Narrative: Patient is a 44-year-old [place]ian speaking male presenting with complaint of cough productive of yellow sputum for the past month, associated shortness of breath. On exam patient is awake, A+Ox3, VS WNL, afebrile, normal neurological exam without focal deficits, physical exam findings as above. Given reported symptoms and physical exam findings, initial differential includes but is not limited to viral illness, Covid, flu, RSV, bronchitis, pneumonia. Viral serology negative. X-ray chest notable for no evidence of pneumonia. My interp retation is in agreement with the radiologist's interpretation. Results discussed with patient and all questions answered. Given ongoing nature of symptoms and scattered wheezes, will treat for bronchitis with azithromycin, albuterol, prednisone. Return precautions discussed at bedside. Follow up with PCP as needed. Patient verbalized understanding of and agreement with plan. In- person die maker bench stamping was utilized for all interactions, assessments, and discussions. Differential Diagnosis Differential Diagnoses: The differential diagnosis associated with the presentation includes As per [facility] Lab Data [facility] Lab Attestation statement: I reviewed the patient's lab results. As per [facility] Labs: Lab Results 09/04/24 Range/Units 07:53 Influenza Type A (PCR) NEGATIVE (Negative) Influenza Type B (PCR) NEGATIVE (Negative) RSV RNA Qual (PCR) NEGATIVE (Negative) SARS-CoV-2 RNA (RT-PCR) NEGATIVE (Negative) Independent Interpretation I performed an independent interpretation of an: Plain X-Ray Interpretation: No evidence of pneumonia on chest x-ray. Radiology Impression Discussion of test interpretation with radiology: I have reviewed the radiologist's reading. Radiologist Impression: XR/XR chest 2V IMPRESSION: No acute airspace disease. Hyperinflated lungs. External Record Review External record reviewed: Inpatient record, Office record and Outpatient record Prescription Management I considered prescription management with: Antibiotic and Other Discharge Plan Discharge Clinical Impression: Bronchitis Patient Disposition: Home, Self-Care Instructions: Acute Bronchitis (ED) Additional Instructions: You were evaluated in the emergency department today for cough and shortness of breath. You are being treated for bronchitis with an antibiotic, please complete the full course as prescribed. You are also being prescribed a short course of steroids to decrease inflammation. You are being prescribed an inhaler which you can use every 4-6 hours as needed for shortness of breath. Please follow-up with your primary care provider this week. Return to the emergency department if you develop worsening shortness of breath, difficulty breathing, chest pain, fever not improved with Tylenol or ibuprofen, or any other concerning symptoms. Prescriptions: New azithromycin 250 mg tablet See Rx Instructions .ROUTE .COMPLEX Qty: 6 0RF Rx Instructions: For 250 mg dose pack: take 500 mg today (day 1), then 250 mg for 4 days (days 2-5) prednisone 20 mg tablet 40 mg PO DAILY Qty: 10 0RF albuterol sulfate 90 mcg/actuation HFA aerosol inhaler 2 puff inhalation Q4-6H PRN (Reason: shortness of breath or wheezing) Qty: 6.7 0RF No Action azithromycin 250 mg tablet 250 mg PO DAILY 4 Days Qty: 4 0RF Rx Instructions: start on day 2 of therapy Print Language: [place]ian
[2024-09-04 10:46] VITALS: BP 105/61; PULSE 77; RESP 18; TEMP 36.4; O2SAT 96
[2024-09-04 10:47] VITALS: BP 105/61; PULSE 77; RESP 18; TEMP 36.4; O2SAT 96
== END 2024-09-04 10:48 | disposition home or self-care (01) ==
PROVIDERS: Emergency Provider Student in an Organized Health Care Education/Training Program
DX: J40 Bronchitis, not specified as acute or chronic (principal); R06.02 Shortness of breath; R05.9 Cough, unspecified; F17.210 Nicotine dependence, cigarettes, uncomplicated; Z03.818 Encounter for observation for suspected exposure to other biological agents ruled out
CPT/HCPCS: 0241U; 71046; 99283; 99284

== ENCOUNTER → 2024-09-04 07:32 | Outpatient (BNV) | payer MEDICAID, SELFPAY | PROVIDERS: Visit Provider Radiology Diagnostic Radiology | DX: R06.02 Shortness of breath (principal) | CPT/HCPCS: 71046 ==

== ENCOUNTER 2024-10-12 12:46 | Emergency (ER) | payer MEDICAID, SELFPAY ==
--- NOTE | ~2024-10-12 | XR_ITS ---
CLINICAL HISTORY: cough, SOB 2 view chest x-ray Comparison: CR/SR - XR CHEST 2V - 09/04/24 07:54 EST Findings: No consolidation or effusion. Normal size heart. No acute fracture. IMPRESSION: 1. No acute findings. This document has been electronically signed by: Violet Tiwari MD on 10/12/2024 14:09:09
[2024-10-12 13:08] VITALS: BP 101/53; PULSE 88; RESP 18; TEMP 36.6; O2SAT 94; BMI 21.3
--- NOTE | 2024-10-12 13:11 | ED.GENADULT ---
HPI - General Adult General Chief complaint: Dyspnea Stated complaint: diff breathing Related Data Previous Rx's ?Medication ?Instructions ?Recorded azithromycin 250 mg tablet 250 mg PO DAILY 4 days #4 tabs 11/11/22 albuterol sulfate 90 mcg/actuation 2 puff inhalation Q4-6H PRN 09/04/24 aerosol inhaler shortness of breath or wheezing #6.7 grams azithromycin 250 mg tablet See Rx Instructions PO .COMPLEX #6 09/04/24 tabs prednisone 20 mg tablet 40 mg (2 x 20 mg) PO DAILY #10 tabs 09/04/24 Allergies Allergy/AdvReac Type Severity Reaction Status Date / Time haloperidol [From HALDOL] Allergy Unknown UNKNOWN Verified 10/12/24 13:17 [facility] Social History Social History Alcohol intake: current Alcohol intake frequency: a few times a month Alcohol type: hard liquor Patient Tobacco Use Status: Current everyday Tobacco user Do you have a plan to hurt others: No Plan Physical Exam ED Vital Signs: Vital Signs - 24 hr 10/12/24 13:08 Temperature 97.8 F Pulse Rate 88 Respiratory Rate 18 Blood Pressure 101/53 L Pulse Oximetry 94 Oxygen Delivery Method Room Air BMI result Body Mass Index 21.3 Course Course Course Narrative: This is an RME performed by Erin Sol CNP: Additional HPI, ROS, PE not included below will be deferred to primary provider. Patient is a 44-year-old male who presents emergency department for evaluation. He reports that he has been experiencing shortness of breath over the past month, states he was seen here previously for similar was given a medication but has since ran out, does not recall what he was given. Continues with a productive cough and green phlegm. He states over the past 20 minutes he has noticed the shortness of breath has increased. He is speaking clear full sentences. No Hypoxia or tachycardia. LS with wheezing bilateral apices Plan: CXR, viral serologies Reevaluation(s) Reevaluation #1: LWCT Medical Decision Making Lab Data Labs: Lab Results 10/12/24 Range/Units 13:25 Influenza Type A (PCR) NEGATIVE (Negative) Influenza Type B (PCR) NEGATIVE (Negative) RSV RNA Qual (PCR) NEGATIVE (Negative) SARS-CoV-2 RNA (RT-PCR) NEGATIVE (Negative) Discharge Plan Discharge Clinical Impression: Shortness of breath Patient Disposition: Left W/O Completing Treatment Prescriptions: No Action azithromycin 250 mg tablet 250 mg PO DAILY 4 Days Qty: 4 0RF Rx Instructions: start on day 2 of therapy azithromycin 250 mg tablet See Rx Instructions .ROUTE .COMPLEX Qty: 6 0RF Rx Instructions: For 250 mg dose pack: take 500 mg today (day 1), then 250 mg for 4 days (days 2-5) prednisone 20 mg tablet 40 mg PO DAILY Qty: 10 0RF albuterol sulfate 90 mcg/actuation HFA aerosol inhaler 2 puff inhalation Q4-6H PRN (Reason: shortness of breath or wheezing) Qty: 6.7 0RF
[2024-10-12 14:31] LABS: Influenza A PCR NEGATIVE (Negative); Influenza B PCR NEGATIVE (Negative); Resp Syncy Virus RNA Qual PCR NEGATIVE (Negative); SARS COV2 PCR INHOUSE NEGATIVE (Negative)
--- OUTSIDE RECORDS SUMMARY | 2024-10-12 19:07 | XMS_ITS | Encounter Summary ---
Author Organization [employer] Address [address] [facility] [address] [place] [address] Care Team Providers Care Oil Processing Technician Name Role Phone Leonora Vargas Primary Care Provider [phone] Eleanor Treviño MD Primary Care Pro vider Encounter Details Date Type Department Care Team (Late st Contact Info) Description 06/20/2023 Orders Only [facility] [address] [place] [address] Calista Villa RN Uncomplicated opioid dependence (CMS/HCC) (Primary Dx) Social History Tobacco Use Types Packs/Day Years Used Date Smoking Tobacco: Every Day Cigarettes Smokeless Tobacco: Never Alcohol Use Standard Drinks/Week Comments Not Currently 0 (1 standard drink = 0.6 oz pur e alcohol) Depression Answer Date Recorded Patient Health Questionnaire-9 Score 0 02/28/2023 Housing Stability Answer Date Recorded What is your housing situation today? I do not have housing (Staying with others, in a hotel, in a residential, living outside on the street, on a beach, in a car, or in a park 05/27/[address] you li ve. Do you have problems with any of the following? None of the above 05/27/2023 Food Insecurity Answer Date Recorded Within the past 12 months, y ou worried that your food would run out before you got money to buy more: Never True 06/05/2023 Within the past 12 months,th e food you bought just didn't last and you didn't have enough money to get more: Never True Transportation Answer Date Recorded In the past 12 months, has l ack of transportation kept you from medical appts, meetings, work or from getting things needed for daily living? No 06/05/2023 Utilities Answer Date Recorded In the past 12 months, has t he electric, gas, oil or water company threatened to shut off services in your home? No 06/05/2023 Depression Answer Date Recorded Patient Health Questionnaire-2 Score 0 02/28/2023 Sex and Gender Information Value Date Recorded Sex Assigned at Male 06/19/2022 10:18 AM EDT Legal Sex Male 10:18 AM EDT Gender Identity Male 06/19/2022 10:18 AM EDT Sexual Orientation Bisexual 08/24/2023 11 :26 AM EST documented as of this encounter Plan of Treatment Upcoming Encounters Date Type Department Care Team (Late st Contact Info) Description 10/21/2024 1:30 PM EST Clinical Support [facility] [address] [place] [id number] Calista Villa RN Scheduled Orders Name Type Priority Associated Diagnoses Orde r Schedule T-SPOT??.TB Lab Routine Uncomplicated opioid dependence (CMS/HCC) Expected: 06/20/2023 (Approximate), Expires: 06/20/2024 documented as of this encounter Visit Diagnoses Diagnosis Uncomplicated opioid dependence (CMS/HCC)- Primary documented in this encounter Additional Health Concerns Assessment Noted Time PHQ-9 Depression Total Score: 0 02/29/20 23 2:02 PM EDT documented as of this encounter Care Teams Oil Processing Technician Relationship Specialty Start Date End Date Leonora Vargas ANP [address] [place] [phone] PCP - General Family Medicine 04/14/22 06/22/24 Eleanor Treviño MD [address] [place] [id number] PCP - General Internal Medicine 06/23/24 Lacey Mcmanus Patient Accounts ManagerCaddie Supervisor 08/07/24 documented as of this encounter
--- OUTSIDE RECORDS SUMMARY | 2024-10-12 19:07 | XMS_ITS | Clinical Summary ---
Author Organization [facility] Address [address] [place] [address] Care Team Providers Care Administrative Processor Name Role Phone Unavailable Primary Care Provider Unavailabl e Social History Tobacco Use Types Packs/Day Years Used Date Smoking Tobacco: Never Assessed Sex and Gender Information Value Date Recorded Sex Assigned at Not on file Gender Identity Not on file Sexual Orientation Not on file Plan of Treatment Health Maintenance Due Date Last Done Comments Hepatitis C Virus Screening 1978 HIV Screening 1991 DTaP/Tdap/Td Vaccines (1 - Tdap) 1997 Hepatitis B Vaccines (1 of 3 - 19+ 3-dose series) 1997 COVID-19 Vaccine (2023-2 5 season) 2024 Pneumococcal Vaccine: Pediat kenyatta (0-5 Years) and At-Risk Patients (6 to 49 Years) Aged Out No longer eligible b ased on patient's age to complete this topic
--- OUTSIDE RECORDS SUMMARY | 2024-10-12 19:07 | XMS_ITS | Encounter Summary ---
Author Organization [employer] Address [address] [facility] 7[address] [place] [address] Care Team Providers Care Skin Installer Name Role Phone Eleanor Treviño MD Primary Care Pro vider Encounter Details Date Type Department Care Team (Late st Contact Info) Description 09/26/2024 Orders Only [facility] [address] [facility] [place] [address] Calista Villa RN Uncomplicated opioid dependence (CMS/[facility]) Social History Tobacco Use Types Packs/Day Years Used Date Smoking Tobacco: Every Day Cigarettes Smokeless Tobacco: Never Comments:Started smoking 17 y of age until now ---smokes 1/2 to 1 PQT a day Alcohol Use Standard Drinks/Week Comments Yes 0 (1 standard drink = 0.6 oz pur e alcohol) binging Depression Answer Date Recorded Patient Health Questionnaire-9 Score 5 06/25/2024 Patient Health Questionnaire-9 Score 5 06/25/2024 Last PHQ-9: Questionnaire Data Not on file 1 08/25/2023 Housing Stability Answer Date Recorded What is your housing situation today? I do not have housing (Staying with others, in a hotel, in a long term, living outside on the street, on a [...] Answer Date Recorded Patient Health Questionnaire-2 Score 2 06/25/2024 Sex and Gender Information Value Date Recorded Sex Assigned at Male 06/19/2022 10:18 AM EDT Legal Sex Male 10:18 AM EDT Gender Identity Male 06/19/2022 10:18 AM EDT Sexual Orientation Bisexual 08/24/2023 11 :26 AM EST documented as of this encounter Plan of Treatment Upcoming Encounters Date Type Department Care Team (Late st Contact Info) Description 10/21/2024 1:30 PM EST Clinical Support [address] [address] Calista Villa RN Scheduled Orders Name Type Priority Associated Diagnoses Orde r Schedule Hepatitis A Antibody, Total Lab Routine Uncomplicated opioid dependence (CMS/HCC) Expected: 09/26/2024 (Approximate), Expires: 09/26/2025 Hepatic Function Panel Lab Routine Uncomplicated opioid dependence (CMS/HCC) Expected: 09/26/2024 (Approximate), Expires: 09/26/2025 Hepatitis C Antibody with Reflex to HCV, RNA, Quantitative, Real-Time PCR Lab Routine Uncomplicated opioid dependence (CMS/HCC) Expected: 09/26/2024 (Approximate), Expires: 09/26/2025 HIV-1/2 Antigen and Antibodies, Fourth Generation, with Reflexes Lab Routine Uncomplicated opioid dependence (CMS/HCC) Expected: 09/26/2024 (Approximate), Expires: 09/26/2025 Syphilis Screen Lab Routine Uncomplicated opioid dependence (CMS/HCC) Expected: 09/26/2024 (Approximate), Expires: 09/26/2025 T-SPOT??.TB Lab Routine Uncomplicated opioid dependence (CMS/HCC) Expected: 09/26/2024 (Approximate), Expires: 09/26/2025 documented as of this encounter Visit Diagnoses Diagnosis Uncomplicated opioid dependence (CMS/HCC) documented in this encounter Additional Health Concerns Assessment Noted Time PHQ-9 Depression Total Score: 5 06/25/20 24 11:04 AM EST documented as of this encounter Care Teams Skin Installer Relationship Specialty Start Date End Date Eleanor Treviño MD [address] [place] [phone] PCP - General Internal Medicine 06/23/24 Lacey Mcmanus Business Applications ManagerBranch Associate 08/07/24 documented as of this encounter
--- OUTSIDE RECORDS SUMMARY | 2024-10-12 19:07 | XMS_ITS | Encounter Summary ---
Author Organization [employer] Address [address] [facility] [address] [place] [address] Care Team Providers Care Recreation Therapy Aides Teacher Name Role Phone Leonora Vargas Primary Care Provider [phone] Eleanor Treviño MD Primary Care Pro vider Encounter Details Date Type Department Care Team (Late st Contact Info) Description 06/20/2023 Orders Only [facility] [address] [place] [address] Calista Villa RN Uncomplicated opioid dependence (CMS/HCC) [...] with others, in a hotel, in a mcc, living outside on the street, on a [...] Description 10/21/2024 1:30 PM EST Clinical Support [facility] [address] [place] [phone] Calista Villa RN Scheduled Orders Name Type Priority Associated Diagnoses Orde r Schedule QuantiFERON TB Gold Lab Routine Uncomplicated opioid dependence (CMS/HCC) Expected: 06/20/2023 (Approximate), Expires: 06/20/2024 documented as of this encounter Visit Diagnoses Diagnosis Uncomplicated opioid dependence (CMS/HCC)- Primary documented in this encounter Additional Health Concerns Assessment Noted Time PHQ-9 Depression Total Score: 0 02/29/20 23 2:02 PM EDT documented as of this encounter Care Teams Recreation Therapy Aides Teacher Relationship Specialty Start Date End Date Leonora Vargas ANP [address] [place] [id number] PCP - General Family Medicine 04/14/22 06/22/24 Eleanor Treviño MD [address] [place] [phone] PCP - General Internal Medicine 06/23/24 Lacey Mcmanus Extension Course CoordinatorReading Coach 08/07/24 documented as of this encounter
--- OUTSIDE RECORDS SUMMARY | 2024-10-12 19:07 | XMS_ITS | Clinical Summary ---
Author Organization [employer] Address [address] [facility] [address] [place] [address] Care Team Providers Care Pattern Grader Cutter Name Role Phone Eleanor Treviño MD Primary Care Pro vider Allergies No known active allergies Medications * This document contains information received from the source organization and may not represent a complete record from that organization. Naloxone HCl (NARCAN NA) Administer into affected nostril(s). [place] 0.1 milliliter by intranasal route in 1 nostril may repeat dose every 2-3 minutes as needed alternating nostrils with each dose 021 Active docusate sodium (Colace) 100 MG capsuleIndicati ons:Uncomplicat ed opioid dependence (CMS/HCC) TAKE 1 CAPSULE BY MOUTH TWICE DAILY NEEDED CONSTIPATION 180 capsule 1 023 Active QUEtiapine (SEROquel) 100 MG tabletIndicatio ns:Depressive disorder,Diffic ulty sleeping Take 1 tablet (100 mg) by mouth at bedtime. 90 tablet 023 Active albuterol 108 (90 Base) MCG/ACT inhalerIndicati ons:Mild intermittent asthma in adult without complication Inhale 2 puffs every 6 (six) hours if needed for wheezing. 18 g 1 023 Active nicotine (Nicoderm CQ) 14 MG/24HR patch Place 1 patch on the skin 1 (one) time each day at the same time. 42 patch 024 Active nicotine (Nicoderm CQ) 7 MG/24HR patch Place 1 patch on the skin 1 (one) time each day at the same time. 14 patch 024 Active nicotine polacrilex (Commit) 4 MG lozenge Dissolve 1 lozenge (4 mg) in the mouth every 2 (two) hours if needed for smoking cessation. 100 lozenge 024 Active nicotine (Nicoderm CQ) 7 MG/24HR patchIndication s:Tobacco dependence Place 1 patch on the skin 1 (one) time each day at the same time. 14 patch 024 Active nicotine (Nicoderm CQ) 14 MG/24HR patchIndication s:Tobacco dependence Place 1 patch on the skin 1 (one) time each day at the same time. 14 patch 024 Active nicotine polacrilex (Commit) 4 MG lozengeIndicati ons:Tobacco dependence Dissolve 1 lozenge (4 mg) in the mouth every 1 (one) hour if needed for smoking cessation. 100 lozenge 024 Active nicotine (Nicoderm CQ) 21 MG/24HR patch Place 1 patch on the skin 1 (one) time each day at the same time. 42 patch 024 Active buprenorphine-n aloxone (Suboxone) 2-0.5 MG per sublingual filmIndications :Uncomplicated opioid dependence (CMS/HCC) Place 1 Film under the tongue Once per day for 28 days. 28 Film 025 2024 Active buprenorphine-n aloxone (Suboxone) 2-0.5 MG per sublingual filmIndications :Uncomplicated opioid dependence (CMS/HCC) Place 1 Film under the tongue Once per day for 28 days. 28 Film 024 2024 Discontinued(R eorder (will not trigger notification to Pharmacy)) buprenorphine-n aloxone (Suboxone) 2-0.5 MG per sublingual filmIndications :Uncomplicated opioid dependence (CMS/HCC) Place 1 Film under the tongue Once per day for 28 days. 28 Film 025 2024 Discontinued(R eorder (will not trigger notification to Pharmacy)) Active Problems Problem Noted Date Diagnosed Date Health care maintenance 08/25/2023 Assessment & Plan (08/25/2023 6:48 PM EST): T-Spot was borderline then reapted 1 mo ago and was neg -vaccines s/p COVID s/p 3 -booster today , TD 2022 , flu vaccine today, p20 today for active smoking hx -colonoscopy never refuse for now ok to do cologuard-ordered today --labs x annual exam--will RTC in fasting -pt agreed to have STI testing including HIV -will f lab results w PCP Periodontal disease 07/23/2023 Tobacco dependence 10/24/2022 Assessment & Plan (08/25/2023 6:50 PM EST): -advised x tobacco cessation program or aids but refusing x now -Not using pathces nor gums -advised today to try using to at least decrease consumption , discussed about oral options for tobacco cessation but refusing Asthma 04/11/2012 Depressive disorder 04/11/2012 Uncomplicated opioid dependence 02/23/2012 Assessment & Plan (08/25/2023 6:51 PM EST): PHQ9 1 MARIA A 3, no SI, no hallucinations no rhona , no fx hx of pyshc dx hx of heroin and cocaine use --snort and IVDU-not using for last 3-4 y [facility] Imp[facility] fasting glucose 02/22/2012 Hepatitis C virus infection without hepatic coma 02/22/2012 Assessment & Plan (08/25/2023 6:48 PM EST): -03/2023 Hep C VL UD Mild intellectual disability 02/22/2012 Encounters * This document contains information received from the source organization and may not represent a complete record from that organization. Date Type Department Care Team Description 10/12/2024 Orders Only GENERIC EXTERNAL DATA DEPARTMENT Provider, Generic External Data 10/09/2024 Refill [facility] [address] [place] [phone] Calista Villa, RN Uncomplicated opioid dependence (CMS/HCC) 09/26/2024 Orders Only [facility] [address] [place] [phone] Calista Villa, RN Uncomplicated opioid dependence (CMS/HCC) 09/23/2024 2:00 PM EST Office Visit [facility] [address] [place] [phone] Robbi Augustine MD Opioid type dependence, continuous (CMS/HCC) (Primary Dx) 09/23/2024 Travel 09/17/2024 Refill [facility] [address] [place] [address] Calista Villa RN Uncomplicated opioid dependence (CMS/HCC) 09/04/2024 Orders Only GENERIC EXTERNAL DATA DEPARTMENT Provider, Generic External Data 08/26/2024 1:30 PM EST Office Visit [facility] [address] [place] [phone] Robbi Augustine MD Opioid type dependence, continuous (CMS/HCC) (Primary Dx) 08/26/2024 Travel 08/12/2024 Refill [facility] [address] [place] [phone] Calista Villa RN Uncomplicated opioid dependence (CMS/HCC) 08/07/2024 Telephone [facility] [address] [place] [phone] Eleanor Treviño MD Care Coordination (ICP sustainable design coordinator) 07/29/2024 1:45 PM EST Office Visit [facility] [address] [place] [phone] Robbi Augustine MD Uncomplicated opioid dependence (CMS/HCC) (Primary Dx) 07/29/2024 Travel 07/23/2024 Refill [facility] [address] [place] [phone] Calista Villa RN Uncomplicated opioid dependence ([facility]/HCC) 07/22/2024 Refill [facility] [address] [place] [phone] Calista Villa RN Uncomplicated opioid dependence ([facility]/HCC) from Last 3 Months Immunizations Name Administration Dates Next Due Influenza injectable quadriv alent preservative free 08/24/2023 Influenza, Split (incl. dequan fied surface antigen) 08/29/2012 Moderna Covid-19 Vaccine 12+ 09/06/2021,01/19/20 21,12/10/2020 Pfizer Covid-19 Vaccine 12+ 08/24/2023 Pneumococcal Conjugate PCV 20 08/24/2023 TD (adult), 2 Lf tetanus tox oid, preservative free, adsorbed 02/28/2023 Tdap 02/23/2012 Family History Medical History Relation Name Comments Asthma Mother Asthma Sister Relation Name Status Comments Mother Sister Social History Tobacco Use Types Packs/Day Years Used Date Smoking Tobacco: Every Day Cigarettes Smokeless Tobacco: Never Tobacco Cessation:Ready to Q uit: Not Asked; Counseling Given: Not Answered Comments:Started smoking 17 y of age until [...] with others, in a hotel, in a skilled nursing, living outside on the street, on a [...] the past 12 months, has t he [employer], gas, oil or water company threatened to shut off services in your home? No 06/05/2023 Depression Answer Date Recorded Patient Health Questionnaire-2 Score 2 06/25/2024 Sex and Gender Information Value Date Recorded Sex Assigned at Male 06/19/2022 10:18 AM EDT Legal Sex Male 10:18 AM EDT Gender Identity Male 06/19/2022 10:18 AM EDT Sexual Orientation Bisexual 08/24/2023 11 :26 AM EST Last Filed Vital Signs Vital Sign Reading Time Taken Comments Blood Pressure 128/76 05/05/2024 11:19 AM EDT Pulse 87 08/24/2023 10:55 AM EST Temperature - - Respiratory Rate 18 08/24/2023 10:55 AM EST Oxygen Saturation 97% 08/24/2023 10:55 AM EST Inhaled Oxygen Concentration - - Weight 77.2 kg (170 lb 3.2 oz) 08/24/2023 10:55 AM EST Height 180.3 cm (5' 11 ) 08/24/2023 10:55 AM EST Body Mass Index 23.74 08/24/2023 10:55 AM EST Plan of Treatment Upcoming Encounters Date Type Department Care Team (Late st Contact Info) Description 10/21/2024 1:30 PM EST Clinical Support [facility] [address] [place] [phone] Calista Villa, ALEXANDREA Health Maintenance Due Date Last Done Comments CT Colonography 1978 Colonoscopy 1978 Colorectal Cancer Screening 1978 Dental Prophylaxis 1978 Dental X-Ray: Bitewings 1978 FIT DNA/Cologuard 1978 FIT 1978 FOBT 1978 Sigmoidoscopy 1978 Alcohol/Substance Use Screening 1990 Family Planning (PISQ) 1993 Hepatitis A Vaccines (1 of 2 - Risk 2-dose series) 1997 Hepatitis B Vaccines (1 of 3 - 19+ 3-dose series) 1997 Dental Oral Exam 02/26/2014 08/28/2013 SDOH Screening 02/23/2024 02/22/2023 COVID-19 Vaccine ( season) 2024 08/24/2023, 09/06/2021, 01/18/2021, Additional history exists Influenza Vaccine (#1) 2024 08/24/2023, 2012 Depression Screening 06/25/2025 06/25/2024, 06/25/20 24 Tobacco Screening 09/23/2025 09/23/2024 Dental X-Ray: Full Mouth 07/24/2026 07/23/2023 Zoster Vaccines (1 of 2) 2028 Lipid Panel 09/21/2028 09/21/2023 DTaP/Tdap/Td Vaccines (3 - Td or Tdap) 02/28/2033 02/28/2023, 02/23/2012 RSV Patients and Patients Aged 60 years or older (1 - 1-dose 75+ series) 2053 Pneumococcal Vaccine: Pediatrics (0 to 5 Years) and At-Risk Patients (6 to 49) Years) Completed 08/24/2023 HIV Screening Completed 09/21/2023, 03/21, 02/14/2022, Additional history exists HIB Vaccines Aged Out No longer eligi ble based on patient's age to complete this topic HPV Vaccines Aged Out No longer eligi ble based on patient's age to complete this topic IPV Vaccines Aged Out No longer eligi ble based on patient's age to complete this topic Meningococcal Vaccine Aged Out No marielos choco eligible based on patient's age to complete this topic RSV under 20 months Aged Out No longe r eligible based on patient's age to complete this topic Rotavirus Vaccines Aged Out No longer eligible based on patient's age to complete this topic Procedures Procedure Name Priority Date/Time Associated Diagnosis Comments XR CHEST 2 VIEWS Routine 10/12/2024 2:09 PM EST SARS COV2/INFLUENZA A/B AND RSV RNA QL NAAT Routine 10/12/2024 1:25 PM EST POCT TUNDE-14 URINE DRUG SCREEN Routine 09/23/2024 2:29 PM EST Opioid type dependence, continuous (CMS/HCC) SARS COV2/INFLUENZA A/B AND RSV RNA QL NAAT Routine 09/04/2024 7:53 AM EST XR CHEST 2 VIEWS Routine 09/04/2024 7:32 AM EST POCT TUNDE-14 URINE DRUG SCREEN Routine 08/26/2024 1:06 PM EST Opioid type dependence, continuous (CMS/HCC) POCT TUNDE-14 URINE DRUG SCREEN Routine 07/29/2024 1:47 PM EST Uncomplicated opioid dependence (CMS/HCC) HIV 1/2 ANTIGEN/ANTIBODY, FOURTH GENERATION W/RFL Routine 09/21/2023 11:30 AM EST Annual physical exam LIPID PANEL, STANDARD Routine 09/21/2023 11:30 AM EST Annual physical exam PANORAMIC RADIOGRAPHIC IMAGE Routine 07/23/2023 1:00 PM EST COMPREHENSIVE ORAL EVALUATION - NEW OR ESTABLISHED PATIENT Routine 08/28/2013 12:00 AM EST from Last 3 Months or Most Recently Relevant to Health Maintenance Results * XR Chest 2 Views (10/12/2024 2:09 PM EST) Only the most recent of2 resultswithin the time period is included. Anatomical Region Laterality Modality Chest Radiographic Akanksha ging 10/12/2024 2:09 PM EST Narrative 10/12/2024 2:10 PM EST ? [facility] ?[address] ?[place] [address] ?XRay Report ? Signed ? Patient: Terrell,Rashaun ?MR#: [id number] ? : 1980 ?Acct:[id number] ? Age/Sex: 44 / M ?ADM Date: 10/12/24 ? Loc: HO.ED ? Attending Dr: ? Ordering Physician: Lamar Sol CNP ?? Date of Service: 10/12/24 ?? Procedure(s): XR chest 2V ?? Accession Number(s): [id number] ? cc: Lamar Sol CNP; [facility] ? CLINICAL HISTORY: cough, SOB ? 2 view chest x-ray ? Comparison: CR/SR - XR CHEST 2V - 09/04/24 07:54 EST ? Findings: ?? No consolidation or effusion. ?? Normal size heart. ?? No acute fracture. ? IMPRESSION: ?? 1. No acute findings. ? This document has been electronically signed by: Violet Tiwari MD on ?? 10/12/2024 14:09:09 ? Dictated By: ?Violet Tiwari MD ? Signed By: ?<Electronically signed by Violet Tiwari MD in OV> ? 10/12/24 1409 ? DD/ 1409 ? TD/TT: 10/12/24 1409 ? Loss Prevention Manager: ? Procedure Note Maddy, Jj - 10/12/[address] [address] XRay Report Signed Patient: Sahil Terrell#: [id number] : 1980Acct:[id number] Age/Sex: 44 / MADM Date: 10/12/24 Loc: HO.ED Attending Dr: Ordering Physician: Lamar Sol CNP Date of Service: 10/12/24 Procedure(s): XR chest 2V Accession Number(s): [id number] cc: Lamar Sol MACHINE TOOL OPERATOR; [facility] CLINICAL HISTORY: cough, SOB 2 view chest x-ray Comparison: CR/SR - XR CHEST 2V - 09/04/24 07:54 EST Findings: No consolidation or effusion. Normal size heart. No acute fracture. IMPRESSION: 1. No acute findings. This document has been electronically signed by: Violet Tiwari MD on 10/12/2024 14:09:09 Dictated By: Violet Tiwari MD Signed By: <Electronically signed by Violet Tiwari MD in OV> 10/12/24 1409 DD/ 1409 TD/TT: 10/12/24 140 Loss Prevention Manager: [facility] External Provider IMG XR PROCEDURES Edited Result - Final * SARS-CoV-2 RNA, Influenza A/B, and RSV RNA, Ql NAAT (10/12/2024 1:25 PM EST) Only the most recent of2 resultswithin the time period is included. Influenza A PCR NEGATIVE Negative [facility] Influenza B PCR NEGATIVE Negative [facility] Resp Syncy Virus RNA Qual PCR NEGATIVE Negative [facility] SARS COV2 PCR NEGATIVE Negative [facility] Comment:All test results mus t be correlated with clinical findings.Negative results do not preclude SARS-CoV2, influenza Avirus, influenza B virus and/or RSV infectionand should not be used as the sole basis for treatment orother patient management decisions. Negative results must becombined with clinical observations, patient history, andepidemiological information.This test has not been evaluated for monitoring treatment ofinfection.This test has been authorized by the FDA under an EmergencyUse Authorization (EUA) for use by authorized laboratories.Testing performed on the [employer] GeneXpert utilizingreal-time RT-PCR.All SARS CoV2 and positive influenza A/B results arereported to [facility]. 10/12/2024 1:25 PM EST 10/12/2024 1:47 PM EST Generic External Data Provider LAB MICROBIOLOGY - GENERAL ORDERABLES Final Result [facility] [address] [place] [phone] [phone] * POCT TUNDE-14 Urine Drug Screen (09/23/2024 2:29 PM EST) Only the most recent of3 resultswithin the time period is included. THC Negative Cocaine Screen, Urine Negative Opiate Screen, Urine Negative Methamphetamine Screen Urine Negative Amphetamine Screen, Urine Negative Benzodiazepines Screen, Urine Negative Barbiturate Screen, Urine Negative Methadone Screen, Urine Negative Buprenophine Screen, Urine Positive TCA, Urine Negative MDMA Urine Negative ng/mL Oxycodone Screen, Urine Negative Phencyclidine (PCP), Urine Negative Propoxyphene, Urine Negative Fentanyl, Urine Negative Urine Urine specimen obtained by clean catch procedure / Unknown 09/23/2024 2:29 PM EST Robbi Augustine MD POINT OF CARE TEST ENTER/EDIT OR DERABLES Final Result * HIV-1/2 Antigen and Antibodies, Fourth Generation, with Reflexes (09/21/2023 11:30 AM EST) HIV AB/AG Nonreactive Nonreactive [facility] Comment:HIV-1 p24 Ag and/or HIV-1/HIV-2 Ab not detected.A test result that is nonreactive does not exclude thepossibility of exposure to or infection with HIV-1 and/orHIV-2. Nonreactive results in this assay for individualswith prior exposure to HIV-1 and/or HIV-2 may be due toantigen and antibody levels that are below the limit ofdetection of this assay.The [employer] HIV Ag/Ab Combo assay result andsupplemental assay results should be interpreted inconjunction with the patient's clinical presentation,history and other laboratory results. If the results areinconsistent with clinical evidence, additional testing issuggested to confirm the result. Blood Venous blood specimen / Unknown 09/21/2023 11:30 AM EST 09/21/2023 1:10 PM EST us Eleanor Craig MD LAB BLOOD ORDERAB LES Final Result Performing Organization Address City/[facility] Co de Phone Number [facility] [address] [place] [phone] * (ABNORMAL) Lipid Panel, Standard (09/21/2023 11:30 AM EST) Triglycerides 206(H) <150 mg/dL [facility] Comment:Desirable Triglyceri de: less than 150 mg/dLBorderline High Triglyceride 150-199 mg/dLHigh Triglyceride: 200-499 mg/dLVery High Triglyceride: greater than or equal to 5OO mg/dL Cholesterol 156 <200 mg/dL [facility] Comment:Desirable Cholestero l: less than 200 mg/dLBorderline High Cholesterol: 200-239 mg/dLHigh Cholesterol: greater than 239 mg/dL LDL Cholesterol Calculated 87 <100 mg/dL [facility] Comment:Desirable LDL: less than 100 mg/dLNear Optimal/Above Optimal LDL: 110- 129 mg/dLBorderline High LDL: 130-159 mg/dLHigh LDL: 160-189 mg/dLVery High LDL: greater than or equal to 190 mg/dL HDL Cholesterol 28(L) >40 mg/dL [facility] Comment:Desirable HDL: great er than 40 mg/dL Note: This HDL assay may give artificially low results in patients with liver disease. Blood Venous blood specimen / Unknown 09/21/2023 11:30 AM EST 09/21/2023 1:10 PM EST Eleanor Craig MD LAB BLOOD ORDERAB LES Final Result [facility] [address] [place] [phone] from Last 3 Months or Most Recently Relevant to Health Maintenance Insurance [facility] C3 DENTAL-[facility] MEDICAID STAND ADULT [address] [place] [id number] [place] [id number] Care Teams Pattern Grader Cutter Relationship Specialty Start Date End Date Eleanor Treviño MD [address] [place] [address] PCP - General Internal Medicine 06/23/24 Lacey Mcmanus Engineering Technology InstructorTermite Control Representative 08/07/24
--- OUTSIDE RECORDS SUMMARY | 2024-10-12 19:07 | XMS_ITS | Encounter Summary ---
Author Organization [employer] Address [address] [facility] [address] [place] [address] Care Team Providers Care Litigation Claim Representative Name Role Phone Eleanor Treviño MD Primary Care Pro vider Reason for Visit * Reason Onset Date Comments Med Refill 10/09/2024 Encounter Details Date Type Department Care Team (Late st Contact Info) Description 10/09/2024 Refill [facility] [address] [place] [address] Calista Villa RN Uncomplicated opioid dependence (CMS/HCC) Social History Tobacco Use Types Packs/Day Years [...] with others, in a hotel, in a fdc, living outside on the street, on a [...] 1:30 PM EST Clinical Support [facility] [address] [place] [address] Calista Villa RN documented as of this encounter Visit Diagnoses Diagnosis Uncomplicated opioid dependence (CMS/HCC) documented in this encounter Additional Health Concerns Assessment Noted Time PHQ-9 Depression Total Score: 5 06/25/20 24 11:04 AM EST documented as of this encounter Care Teams Litigation Claim Representative Relationship Specialty Start Date End Date Eleanor Treviño MD [address] [place] [address] PCP - General Internal Medicine 06/23/24 Lacey Mcmanus Natural Sciences ManagerSilver Buffer 08/07/24 documented as of this encounter
--- OUTSIDE RECORDS SUMMARY | 2024-10-12 19:07 | XMS_ITS | Encounter Summary ---
Author Organization [employer] Address 75 [facility] 7t [place] [address] Care Team Providers Care Community Health Program Representative Name Role Phone Eleanor Treviño MD Primary Care Pro vider Reason for Visit * Reason Comments OBAT F/U Encounter Details Date Type Department Care Team ([facility] st Contact Info) Description 09/23/2024 2:00 PM EST Office Visit [facility] [address] [place], [place] [phone] Robbi Augustine MD [address] [place] [address] Opioid type dependence, continuous (CMS/HCC) (Primary Dx) Social History Tobacco Use [...] with others, in a hotel, in a fci, living outside on the street, on a [...] the past 12 months, has t he [employer], gas, oil or water [employer] threatened to shut off services in your home? No 06/05/2023 Depression Answer Date Recorded Patient Health Questionnaire-2 Score 2 06/25/2024 Sex and Gender Information Value Date Recorded Sex Assigned at Male 06/19/2022 10:18 AM EDT Legal Sex Male 10:18 AM EDT Gender Identity Male 06/19/2022 10:18 AM EDT Sexual Orientation Bisexual 08/24/2023 11 :26 AM EST documented as of this encounter Progress Notes * Robbi Augustine MD - 09/23/2024 2:00 PM EST Subjective Patient ID: Rashaun Terrell is a 44 y.o. male. HPI Rashaun Terrell is here today for Opioid Dependence RV. Patient on current Suboxone dose of 2/0.5 mg marialuisa 4 week schedule. Patient has been in the program for 3 years 8 months. Induction date: 01-05-21. LFTs done 04/10/23 HEP A status: Immune HEP B status: Immune HEP C status: 04/10/23: Reactive: HCV RNA <15 HIV status: 04/10/23: Non-reactive [facility] therapist: Tucker (Tirsa); Rosa sched appt with Dr. Alvarez and is now on a waiting list Chief Technical Officer: pending since Yanique left. Last LFTS: 09/21/2023 MassNVT reviewed. UTOX: +bup Taking Suboxone 2/0.5 mg every day as prescribed. Has Colace for constipation, does not need refill. Feeling well. Had [facility] intake 06/25; note mentions: Off-site services for Behavioral Health Integration Plan External OP therapy referral and OP psychiatry Referral. Today Garrett is looking into referral. She spoke to Rashaun' mother, and Rashaun will be referred to counselor and psychiatrist. Lives with parents. Has 2 children ages 7 and 12 who live with their mother Occasional EtOH. Smoking 1/2 PPD. He tred nicotine lozenges, declined patches. States that he wants to continue smoking, declines further NRT at this time. Attends day program across street from [facility]. The following portions of the chart were reviewed this encounter and updated as appropriate: Tobacco Allergies Meds Problems Med Hx Surg Hx Fam Hx Review of Systems Constitutional: Negative for fever. Respiratory: Negative for shortness of breath. Cardiovascular: Negative for chest pain. Gastrointestinal: Negative for abdominal pain. Skin: Negative for rash. Neurological: Negative for headaches. Objective Physical Exam Vitals and nursing note reviewed. Constitutional: Appearance: Normal appearance. HENT: Head: Normocephalic and atraumatic. Nose: Nose normal. Eyes: Conjunctiva/sclera: Conjunctivae normal. Pupils: Pupils are equal, round, and reactive to light. Pulmonary: Effort: Pulmonary effort is normal. Skin: General: Skin is warm and dry. Neurological: Mental Status: He is alert. Gait: Gait is intact. Psychiatric: Mood and Affect: Mood and affect normal. Behavior: Behavior normal. Procedures Assessment/Plan Diagnoses and all orders for this visit: Opioid type dependence, continuous (CMS/[facility]) Recovery support, harm reduction (including Narcan) and behavioral health attendance reviewed. Continue Suboxone 2/0.5 mg on 4 week schedule. - POCT TUNDE-14 Urine Drug Screen documented in this encounter Plan of Treatment Upcoming Encounters Date Type Department Care Team (Late st Contact Info) Description 10/21/2024 1:30 PM EST Clinical Support [facility] [address] [place] [phone] Calista Villa RN documented as of this encounter Procedures Procedure Name Priority Date/Time Associated Diagnosis Comments POCT TUNDE-14 URINE DRUG SCREEN Routine 09/23/2024 2:29 PM EST Opioid type dependence, continuous (CMS/HCC) documented in this encounter Results * POCT TUNDE-14 Urine Drug Screen (09/23/2024 2:29 PM EST) THC Negative Cocaine Screen, Urine Negative Opiate [...] CARE TEST ENTER/EDIT OR DERABLES Final Result documented in this encounter Visit Diagnoses Diagnosis Opioid type dependence, continuous (CMS/HCC)- Primary Opioid type dependence, continuous documented in this encounter Additional Health Concerns Assessment Noted Time PHQ-9 Depression Total Score: 5 06/25/20 24 11:04 AM EST documented as of this encounter Care Teams Community Health Program Representative Relationship Specialty Start Date End Date Eleanor Treviño MD [address] [place] [phone] PCP - General Internal Medicine 06/23/24 Lacey Mcmanus Wearing Apparel ShakerSpreader Box Operator 08/07/24 documented as of this encounter
--- OUTSIDE RECORDS SUMMARY | 2024-10-12 19:07 | XMS_ITS | Encounter Summary ---
Author Organization [facility] Address [address] [place] [address] Care Team Providers Care Manager Materials Management Name Role Phone Unavailable Primary Care Provider Unavailabl e Encounter Details Date Type Department Care Team (Late st Contact Info) Description 09/03/2020 Scanned Document [facility] Pulmonary [place] [address] [place] [address] Winsome Hart, METALIZING MACHINE OPERATOR AUTOMATIC [address] [place] [address] Social History Tobacco Use Types Packs/Day Years Used Date Smoking Tobacco: Never Assessed Sex and Gender Information Value Date Recorded Sex Assigned at Not on file Gender Identity Not on file Sexual Orientation Not on file documented as of this encounter Plan of Treatment Not on file documented as of this encounter Visit Diagnoses Not on filedocumented in this encounter
--- OUTSIDE RECORDS SUMMARY | 2024-10-12 19:07 | XMS_ITS | Encounter Summary ---
Author Organization [employer] Address 75 [facility] 7t [place] [address] Care Team Providers Care K 9 Police Officer Name Role Phone Leonora Vargas Primary Care Provider [phone] Eleanor Treviño MD Primary Care Pro vider Encounter Details Date Type Department Care Team (Late st Contact Info) Description 06/20/2023 Orders Only [facility] MEDICINE [address] [place] [address] Calista Villa RN Social History Tobacco Use Types Packs/Day Years [...] Description 10/21/2024 1:30 PM EST Clinical Support [facility] MEDICINE [address] [place] [address] Calista Villa RN documented as of this encounter Visit Diagnoses Not on filedocumented in this encounter Additional Health Concerns Assessment Noted Time PHQ-9 Depression Total Score: 0 02/29/20 23 2:02 PM EDT documented as of this encounter Care Teams K 9 Police Officer Relationship Specialty Start Date End Date Leonora Vargas ANP [address] [place] [address] PCP - General Family Medicine 04/14/22 06/22/24 Eleanor Treviño MD [address] [place] [phone] PCP - General Internal Medicine 06/23/24 Lacey Mcmanus Multisensor Intelligence OfficerConstruction Area Manager 08/07/24 documented as of this encounter
--- OUTSIDE RECORDS SUMMARY | 2024-10-12 19:07 | XMS_ITS | Encounter Summary ---
Author Organization [employer] Address 75 [facility] 7t [place] [address] Care Team Providers Care Test Department Helper Name Role Phone Leonora Vargas Primary Care Provider [phone] Eleanor Treviño MD Primary Care Pro vider Encounter Details Date Type Department Care Team (Late st Contact Info) Description 06/20/2023 Orders Only [facility] MEDICINE [address] [place] [address] Calista Villa RN Uncomplicated opioid dependence (CMS/HCC) [...] with others, in a hotel, in a usp, living outside on the street, on a [...] Description 10/21/2024 1:30 PM EST Clinical Support [facility] MEDICINE [address] [place] [phone] Calista Villa RN documented as of this encounter Visit Diagnoses Diagnosis Uncomplicated opioid dependence (CMS/HCC)- Primary documented in this encounter Additional Health Concerns Assessment Noted Time PHQ-9 Depression Total Score: 0 02/29/20 23 2:02 PM EDT documented as of this encounter Care Teams Test Department Helper Relationship Specialty Start Date End Date Leonora Vargas ANP [address] [place] [address] PCP - General Family Medicine 04/14/22 06/22/24 Eleanor Treviño MD [address] [place] [address] PCP - General Internal Medicine 06/23/24 Lacey Mcmanus Office EngineerVacuum Closing Machine Operator 08/07/24 documented as of this encounter
--- OUTSIDE RECORDS SUMMARY | 2024-10-12 19:07 | XMS_ITS | Encounter Summary ---
Author Organization [employer] Address 75 [facility] 7t [place] [address] Care Team Providers Care Steel Plate Printer Name Role Phone Eleanor Treviño MD Primary Care Pro vider Encounter Details Date Type Department Care Team (Late st Contact Info) Description 10/12/2024 Orders Only [facility] EXTERNAL DATA DEPARTMENT Provider, Generic External Data Social History Tobacco Use Types Packs/Day Years [...] with others, in a hotel, in a retirement, living outside on the street, on a [...] Description 10/21/2024 1:30 PM EST Clinical Support [facility] [address] [place] [address] Calista Villa RN documented as of this encounter Procedures Procedure Name Priority Date/Time Associated Diagnosis Comments XR CHEST 2 VIEWS Routine 10/12/2024 2:09 PM EST SARS COV2/INFLUENZA A/B AND RSV RNA QL NAAT Routine 10/12/2024 1:25 PM EST documented in this encounter Results * XR Chest 2 Views (10/12/2024 2:09 PM EST) Anatomical Region Laterality Modality Chest Radiographic Akanksha ging 10/12/2024 2:09 PM EST Narrative 10/12/2024 2:10 PM EST ? [facility] ?[address] ?[place] [address] ?XRay Report ? Signed ? Patient: Terrell,Rashaun ?MR#: [id number] ? : 1980 ?Acct:[id number] ? Age/Sex: 44 / M ?ADM Date: 02/23/25 ? Loc: HO.ED ? Attending Dr: ? Ordering Physician: Lamar Sol CNP ?? Date of Service: 10/12/24 ?? Procedure(s): XR chest 2V ?? Accession Number(s): [id number] ? cc: Lamar Sol CNP; [facility] ? CLINICAL HISTORY: cough, SOB ? 2 [...] in OV> ? 10/12/24 1409 ? DD/ 08 ? TD/TT: 10/12/241408 ? Master Scheduler: ? Procedure Note Dongregjosephnilater, Image - 10/12/2024 [place] [address] XRay Report Signed Patient: Sahil Terrell#: [id number] : 1980Acct:[id number] Age/Sex: 44 / MADM Date: 10/12/24 Loc: HO.ED Attending Dr: Ordering Physician: Lamar Sol CNP Date of Service: 10/12/24 Procedure(s): XR chest 2V Accession Number(s): [id number] cc: Lamar Sol CNP; [facility] CLINICAL HISTORY: cough, SOB 2 view chest x-ray Comparison: CR/SR - XR CHEST 2V - 09/04/24 07:54 EST Findings: No consolidation or effusion. Normal size heart. No acute fracture. IMPRESSION: 1. No acute findings. This document has been electronically signed by: Violet Tiwari MD on 10/12/2024 14:09:09 Dictated By: Violet Tiwari MD Signed By: <Electronically signed by Violet Tiwari MD in OV> 10/12/241408 DD/ 08 TD/TT: 10/12/241408 Master Scheduler: [facility] External Provider IMG XR PROCEDURES Edited Result - Final * SARS-CoV-2 RNA, Influenza A/B, and RSV RNA, Ql NAAT (10/12/2024 1:25 PM EST) Influenza A PCR NEGATIVE Negative [facility] Influenza B PCR NEGATIVE Negative [facility] Resp Syncy Virus RNA Qual PCR NEGATIVE Negative [facility] SARS COV2 PCR NEGATIVE Negative [facility] Comment:All test results mus t [...] use by authorized laboratories.Testing performed on the [employer] GeneXpert utilizingreal-time RT-PCR.All SARS CoV2 and positive influenza A/B results arereported to [facility]. 10/12/2024 1:25 PM EST 10/12/2024 1:47 PM EST us Generic External Data Provider LAB MICROBIOLOGY - GENERAL ORDERABLES Final Result [facility] [address] [place] [address] [phone] documented in this encounter Visit Diagnoses Not on filedocumented in this encounter Additional Health Concerns Assessment Noted Time PHQ-9 Depression Total Score: 5 06/25/20 24 11:04 AM EST documented as of this encounter Care Teams Steel Plate Printer Relationship Specialty Start Date End Date Eleanor Treviño MD [address] [place] [address] PCP - General Internal Medicine 06/23/24 Lacey Mcmanus Personal Lines Insurance AdvisorPourer Off 08/07/24 documented as of this encounter
--- OUTSIDE RECORDS SUMMARY | 2024-10-12 19:07 | XMS_ITS | Encounter Summary ---
Author Organization [employer] Address [address] [facility] 7t [place] [address] Care Team Providers Care Powerhouse Attendant Name Role Phone Eleanor Treviño MD Primary Care Pro vider Encounter Details Date Type Department Care Team (Latest Contact Info) Description 09/23/2024 Travel Social History Tobacco Use Types Packs/Day Years [...] with others, in a hotel, in a half-way, living outside on the street, on a [...] Description 10/21/2024 1:30 PM EST Clinical Support [facility] MEDICINE [address] [place] [address] Calista Villa RN documented as of this encounter Visit Diagnoses Not on filedocumented in this encounter Additional Health Concerns Assessment Noted Time PHQ-9 Depression Total Score: 5 06/25/20 11:04 AM EST documented as of this encounter Care Teams Powerhouse Attendant Relationship Specialty Start Date End Date Eleanor Treviño MD [address] [place] [phone] PCP - General Internal Medicine 06/23/24 Lacey Mcmanus Mfg AssocVisual Inspector 08/07/24 documented as of this encounter
--- OUTSIDE RECORDS SUMMARY | 2024-10-12 19:07 | XMS_ITS | Encounter Summary ---
Author Organization [employer] Address 75 [facility] 7t [place] [address] Care Team Providers Care Guitar Instructor Name Role Phone Eleanor Treviño MD Primary Care Pro vider Reason for Visit * Reason Onset Date Comments Med Refill 09/17/2024 Encounter Details Date Type Department Care Team (Late st Contact Info) Description 09/17/2024 Refill [facility] MEDICINE [address] [place] [address] Calista Villa RN Uncomplicated opioid dependence (CMS/HCC) [...] with others, in a hotel, in a long-term, living outside on the street, on a [...] Description 10/21/2024 1:30 PM EST Clinical Support [facility] MEDICINE [address] [place] [address] Calista Villa RN documented as of this encounter Visit Diagnoses Diagnosis Uncomplicated opioid dependence (CMS/HCC) documented in this encounter Additional Health Concerns Assessment Noted Time PHQ-9 Depression Total Score: 5 06/25/20 24 11:04 AM EST documented as of this encounter Care Teams Guitar Instructor Relationship Specialty Start Date End Date Eleanor Treviño MD [address] [place] [address] PCP - General Internal Medicine 06/23/24 Lacey Mcmanus Verification EngineerBlunger 08/07/24 documented as of this encounter
== END 2024-10-12 19:13 | disposition left against medical advice (07) ==
PROVIDERS: Nurse Practitioner Family; Emergency Provider Emergency Medicine
DX: R06.02 Shortness of breath (principal); R05.9 Cough, unspecified; Z03.818 Encounter for observation for suspected exposure to other biological agents ruled out; F17.210 Nicotine dependence, cigarettes, uncomplicated
CPT/HCPCS: 0241U; 71046; 99281; 99283

== ENCOUNTER → 2024-10-12 13:15 | Outpatient (BNV) | payer MEDICAID, SELFPAY | PROVIDERS: Visit Provider Radiology Diagnostic Radiology | DX: R06.02 Shortness of breath (principal); R05.9 Cough, unspecified | CPT/HCPCS: 71046 ==

== ENCOUNTER 2024-10-21 13:09 | Outpatient (REF) | payer MEDICAID, SELFPAY ==
--- OUTSIDE RECORDS SUMMARY | 2024-10-21 16:26 | XMS_ITS | Encounter Summary ---
Author Organization [employer] Address 75 [facility] 7t [place] [address] Care Team Providers Care Abrasive Band Winder Name Role Phone Eleanor Treviño MD Primary Care Pro vider Reason for Visit * Reason Comments OBAT F/U Encounter Details Date Type Department Care Team ([facility] st Contact Info) Description 09/23/2024 2:00 PM EST Office Visit [facility] MEDICINE [address] [place], [place] [phone] Robbi [place] MD [address] [place] [address] Opioid type dependence, continuous (CMS/HCC) (Primary Dx) [...] the past 12 months, has t he [employer], gas, oil or water [employer] threatened to shut off services in your [...] HCV RNA <15 HIV status: 04/10/23: Non-reactive [facility] therapist: Tucker (Tirsa); Rosa sched appt with Dr. Alvarez and is now on a waiting list Fitting Supervisor: pending since Yanique left. Last LFTS: 09/21/2023 MassWIT reviewed. UTOX: +bup Taking Suboxone 2/0.5 mg every day as prescribed. Has Colace for constipation, does not need refill. Feeling well. Had [facility] intake 06/25; note mentions: Off-site services [...] time. Attends day program across street from [facility]. The following portions of the [...] for this visit: Opioid type dependence, continuous ([facility]) Recovery support, harm reduction (including Narcan) and behavioral health attendance reviewed. Continue Suboxone 2/0.5 mg on 4 week schedule. - POCT TUNDE-14 Urine Drug Screen documented in this encounter Plan of Treatment Upcoming Encounters Date Type Department Care Team (Late st Contact Info) Description 11/18/2024 2:00 PM EDT Office Visit [facility] MEDICINE [address] [place] [address] Robbi [place] MD [address] [place] [address] 12/09/2024 10:45 AM EDT Office Visit [facility] MEDICINE [address] [place] [address] Eleanor Treviño MD [address] [place] [address] documented as of this encounter Procedures Procedure [...] documented as of this encounter Care Teams Abrasive Band Winder Relationship Specialty Start Date End Date Eleanor Treviño MD [address] [place] [address] PCP - General Internal Medicine 06/23/24 Lacey Mcmanus Veterinary Medicine TeacherEducational Diagnostician 08/07/24 documented as of this encounter
--- OUTSIDE RECORDS SUMMARY | 2024-10-21 16:26 | XMS_ITS | Encounter Summary ---
Author Organization [employer] Address 75 [facility] 7t [place] [address] Care Team Providers Care Manager Study Name Role Phone Leonora Vargas Primary Care Provider [phone] Eleanor Treviño MD Primary Care Pro vider Encounter Details Date Type Department Care Team (Late st Contact Info) Description 06/20/2023 Orders Only [facility] MEDICINE [address] [place] [address] Calista Villa RN Uncomplicated opioid dependence (CMS/HCC) [...] with others, in a hotel, in a nursing home, living outside on the street, on a [...] Description 11/18/2024 2:00 PM EDT Office Visit [facility] MEDICINE [address] [place] [address] Robbi Augustine MD [address] [place] [address] 12/09/2024 10:45 AM EDT Office Visit [facility] MEDICINE [address] [place] [address] Eleanor Treviño MD [address] [place] [address] [phone] Scheduled Orders Name Type Priority Associated Diagnoses [...] documented as of this encounter Care Teams Manager Study Relationship Specialty Start Date End Date Leonora Vargas ANP [address] [place] [address] [phone] PCP - General Family Medicine 04/14/22 06/22/24 Eleanor Treviño MD [address] [place] [address] [phone] PCP - General Internal Medicine 06/23/24 Lacey Mcmanus Tennis PlayerBody Worker 08/07/24 documented as of this encounter
--- OUTSIDE RECORDS SUMMARY | 2024-10-21 16:26 | XMS_ITS | Clinical Summary ---
Author Organization [facility] Address [address] [place] [address] Care Team Providers Care Claim Taker Name Role Phone Unavailable Primary Care Provider [...]
--- OUTSIDE RECORDS SUMMARY | 2024-10-21 16:26 | XMS_ITS | Encounter Summary ---
Author Organization [employer] Address 75 [facility] 7t [place] [address] Care Team Providers Care Knitting Machine Mechanic Name Role Phone Eleanor Treviño MD Primary [...] with others, in a hotel, in a snf, living outside on the street, on a [...] Description 11/18/2024 2:00 PM EDT Office Visit [address] [phone] Robbi [place] MD [address] [place] [address] [phone] 12/09/2024 10:45 AM EDT Office Visit [address] [phone] Eleanor Treviño MD [address] [place] [phone] documented as of this encounter Procedures Procedure [...] EST Narrative 10/12/2024 2:10 PM EST ? [facility] ?[address] ?[place] [address] ?XRay Report ? Signed ? Patient: Terrell,Rashaun ?MR#: [id number] ? : 1980 ?Acct:[id number] ? Age/Sex: 44 / M ?ADM Date: 10/12/24 ? Loc: HO.ED ? Attending Dr: ? Ordering Physician: Lamar Sol CNP ?? Date of Service: 10/12/24 ?? Procedure(s): XR chest 2V ?? Accession Number(s): [id number] ? cc: Lamar Sol CNP; [facility] ? CLINICAL HISTORY: cough, SOB ? [...] DD/ 1409 ? TD/TT: 10/12/24 1409 ? Bee Robber: ? Procedure Note Donvincenzoter, Image - 10/12/2024 [place] [address] XRay Report Signed Patient: Sahil Terrell#: [id number] : 1980Acct:[id number] Age/Sex: 44 / MADM Date: 10/12/24 Loc: HO.ED Attending Dr: Ordering Physician: Lamar Sol CNP Date of Service: 10/12/24 Procedure(s): XR chest 2V Accession Number(s): [id number] cc: Lamar Sol CNP; [facility] CLINICAL HISTORY: cough, SOB 2 view [...] by Violet Tiwari MD in OV> 10/12/24 140 DD/ 08 TD/TT: 10/12/241408 Bee Robber: [facility] External Provider IMG XR PROCEDURES Edited Result - Final * SARS-CoV-2 RNA, Influenza A/B, and RSV RNA, Ql NAAT (10/12/2024 1:25 PM EST) Influenza A PCR NEGATIVE Negative [facility] Influenza B PCR NEGATIVE Negative [facility] Resp Syncy Virus RNA Qual PCR NEGATIVE Negative [facility] SARS COV2 PCR NEGATIVE Negative [facility] Comment:All test results mus t [...] use by authorized laboratories.Testing performed on the [employer] GeneXpert utilizingreal-time RT-PCR.All SARS CoV2 and positive influenza A/B results arereported to [facility]. 10/12/2024 1:25 PM EST 10/12/2024 1:47 PM EST Generic External Data Provider LAB MICROBIOLOGY - GENERAL ORDERABLES Final Result [facility] [address] [place] [address] [phone] documented in this encounter Visit Diagnoses Not on filedocumented in this encounter Additional Health Concerns Assessment Noted Time PHQ-9 Depression Total Score: 5 06/25/20 24 11:04 AM EST documented as of this encounter Care Teams Knitting Machine Mechanic Relationship Specialty Start Date End Date Eleanor Treviño MD [address] [place] [phone] PCP - General Internal Medicine 06/23/24 Lacey Mcmanus Nicu RnBlocker Metal Base 08/07/24 documented as of this encounter
--- OUTSIDE RECORDS SUMMARY | 2024-10-21 16:26 | XMS_ITS | Encounter Summary ---
Author Organization [employer] Address [address] [facility] 7t [place] [address] Care Team Providers Care Analytics Specialist Name Role Phone Leonora Vargas Primary Care Provider [phone] Eleanor Treviño MD Primary Care Pro vider Encounter Details Date Type Department Care Team (Late st Contact Info) Description 06/20/2023 Orders Only [facility] MEDICINE [address] [place] [address] Calista Villa RN Social History Tobacco Use [...] with others, in a hotel, in a prison, living outside on the street, on a [...] Description 11/18/2024 2:00 PM EDT Office Visit [facility] MEDICINE [address] [place] [address] Robbi Augustine MD [address] [place] [phone] 12/09/2024 10:45 AM EDT Office Visit [facility] MEDICINE [address] [place] [address] Eleanor Treviño MD [address] [place] [address] documented as of this encounter Visit Diagnoses Not on filedocumented in this encounter Additional Health Concerns Assessment Noted Time PHQ-9 Depression Total Score: 0 02/29/20 23 2:02 PM EDT documented as of this encounter Care Teams Analytics Specialist Relationship Specialty Start Date End Date Leonora Vargas ANP [address] [place] [phone] PCP - General Family Medicine 04/14/22 06/22/24 Eleanor Treviño MD [address] [place] [phone] PCP - General Internal Medicine 06/23/24 Lacey Mcmanus Scoop DriverGas Leak Inspector 08/07/24 documented as of this encounter
--- OUTSIDE RECORDS SUMMARY | 2024-10-21 16:26 | XMS_ITS | Encounter Summary ---
Author Organization [facility] Address [address] [place] [address] Care Team Providers Care Outside Machinist Helper Name Role Phone Unavailable Primary Care Provider Unavailabl e Encounter Details Date Type Department Care Team (Late st Contact Info) Description 09/03/2020 Scanned Document [facility] Pulmonary [place] [address] [place] [address] Winsome Hart, ANALOG DEVICE DESIGNER [address] [place] [address] Social History Tobacco Use Types Packs/Day Years [...]
--- OUTSIDE RECORDS SUMMARY | 2024-10-21 16:26 | XMS_ITS | Encounter Summary ---
Author Organization [employer] Address [address] [facility] 7t [place] [address] Care Team Providers Care Electrical Products Sales Engineer Name Role Phone Eleanor Treviño MD Primary Care Pro vider Encounter Details Date Type Department Care Team (Late st Contact Info) Description 09/26/2024 Orders Only [facility] MEDICINE [address] [place] [address] Calista Villa RN Uncomplicated opioid dependence (CMS/[facility]) Social History Tobacco Use Types Packs/Day Years [...] with others, in a hotel, in a jail, living outside on the street, on a [...] Description 11/18/2024 2:00 PM EDT Office Visit [facility] MEDICINE [address] [place] [phone] Robbi Augustine MD [address] [place] [phone] 12/09/2024 10:45 AM EDT Office Visit [facility] MEDICINE [address] [place] [address] [phone] Eleanor Treviño MD [address] [place] [address] [phone] Scheduled Orders Name Type Priority Associated Diagnoses [...] documented as of this encounter Care Teams Electrical Products Sales Engineer Relationship Specialty Start Date End Date Eleanor Treviño MD [address] [place] [address] [phone] PCP - General Internal Medicine 06/23/24 Lacey Mcmanus Supervisor Forming And TemperingCritical Care Nurse 08/07/24 documented as of this encounter
--- OUTSIDE RECORDS SUMMARY | 2024-10-21 16:26 | XMS_ITS | Encounter Summary ---
Author Organization [employer] Address [address] [facility] 7t [place] [address] Care Team Providers Care Sand Polisher Name Role Phone Leonora Vargas Primary Care Provider [phone] Eleanor Treviño MD Primary Care Pro vider Encounter Details Date Type Department Care Team (Late st Contact Info) Description 06/20/2023 Orders Only [facility] MEDICINE [address] [place] [address] Calista Villa RN Uncomplicated opioid dependence (CMS/HCC) [...] Description 11/18/2024 2:00 PM EDT Office Visit [facility] MEDICINE [address] [place] [phone] Robbi Augustine MD [address] [place] [address] [phone] 12/09/2024 10:45 AM EDT Office Visit [facility] MEDICINE [address] [place] [address] [phone] Eleanor Treviño MD [address] [place] [address] [phone] Scheduled Orders Name Type Priority Associated Diagnoses Orde r Schedule T-SPOT??.TB Lab Routine Uncomplicated opioid dependence (CMS/HCC) Expected: 06/20/2023 (Approximate), Expires: 06/20/2024 documented as of this encounter Visit Diagnoses Diagnosis Uncomplicated opioid dependence (CMS/HCC)- Primary documented in this encounter Additional Health Concerns Assessment Noted Time PHQ-9 Depression Total Score: 0 02/29/20 23 2:02 PM EDT documented as of this encounter Care Teams Sand Polisher Relationship Specialty Start Date End Date Leonora Vargas ANP [address] [place] [address] [phone] PCP - General Family Medicine 04/14/22 06/22/24 Eleanor Treviño MD [address] [place] [phone] PCP - General Internal Medicine 06/23/24 Lacey Mcmanus Setter Molding And Coremaking MachinesHot Press Operator 08/07/24 documented as of this encounter
--- OUTSIDE RECORDS SUMMARY | 2024-10-21 16:26 | XMS_ITS | Encounter Summary ---
Author Organization [employer] Address [address] [facility] 7t [place] [address] Care Team Providers Care Mixed Crop Farmer Name Role Phone Eleanor Treviño MD Primary Care Pro vider Reason for Visit * Reason Onset Date Comments Med Refill 10/09/2024 Encounter Details Date Type Department Care Team (Late st Contact Info) Description 10/09/[address] [facility] MEDICINE [address] [place] [address] Calista Villa RN Uncomplicated opioid dependence (CMS/HCC) [...] with others, in a hotel, in a group home, living outside on the street, on [...] Description 11/18/2024 2:00 PM EDT Office Visit [facility] MEDICINE [address] [place] [address] [phone] Robbi Augustine MD [address] [place] [phone] 12/09/2024 10:45 AM EDT Office Visit [facility] MEDICINE [address] [place] [address] [phone] Eleanor Treviño MD [address] [place] [address] [phone] documented as of this encounter Visit Diagnoses Diagnosis Uncomplicated opioid dependence (CMS/HCC) documented in this encounter Additional Health Concerns Assessment Noted Time PHQ-9 Depression Total Score: 5 06/25/20 24 11:04 AM EST documented as of this encounter Care Teams Mixed Crop Farmer Relationship Specialty Start Date End Date Eleanor Treviño MD [address] [place] [phone] PCP - General Internal Medicine 06/23/24 Lacey Mcmanus Cmm TechnicianBlank Driller 08/07/24 documented as of this encounter
--- OUTSIDE RECORDS SUMMARY | 2024-10-21 16:26 | XMS_ITS | Encounter Summary ---
Author Organization [employer] Address [address] [facility] 7t [place] [address] Care Team Providers Care Director Imaging Name Role Phone Eleanor Treviño MD Primary Care Pro vider Reason for Visit * Reason Onset Date Comments November recall 10/17/2024 Encounter Details Date Type Department Care Team ([facility] st Contact Info) Description 10/17/[address] [facility] MEDICINE [address] [place] [address] Eleanor Treviño MD [address] [place] [address] November recall Social History Tobacco Use Types Packs/Day Years [...] AM EST documented as of this encounter Miscellaneous Notes * Telephone Encounter - Myra Kuo MA - 10/17/2024 2:05 PM EST Telephone call to patient to schedule the following recall: Visit type: Physical Appointment notes: Physical Patient agree to appointment on 12/09/24 at 10:45 AM with Darnell. documented in this encounter Plan of Treatment Upcoming Encounters Date Type Department Care Team (Late st Contact Info) Description 11/18/2024 2:00 PM EDT Office Visit [facility] MEDICINE [address] [place] [address] [phone] Robbi Augustine MD [address] [place] [phone] 12/09/2024 10:45 AM EDT Office Visit [facility] MEDICINE [address] [place] [address] Eleanor Treviño MD [address] [place] [phone] documented as of this encounter Visit Diagnoses Not on filedocumented in this encounter Additional Health Concerns Assessment Noted Time PHQ-9 Depression Total Score: 5 06/25/20 24 11:04 AM EST documented as of this encounter Care Teams Director Imaging Relationship Specialty Start Date End Date Eleanor Treviño MD [address] [place] [phone] PCP - General Internal Medicine 06/23/24 Lacey Mcmanus Factory Lay Out EngineerDecorator Lighting Fixtures 08/07/24 documented as of this encounter
--- OUTSIDE RECORDS SUMMARY | 2024-10-21 16:26 | XMS_ITS | Encounter Summary ---
Author Organization [employer] Address [address] [facility] 7t [place] [address] Care Team Providers Care Sock Knitter Name Role Phone Eleanor Treviño MD Primary Care Pro vider Reason for Visit * Reason Comments OBAT F/U Encounter Details Date Type Department Care Team (Latest Contact Info) Description 10/21/2024 1:30 PM EST Clinical Support [facility] MEDICINE [address] [place] [address] Calista Villa RN Uncomplicated opioid dependence (CMS/HCC) [...] with others, in a hotel, in a intermediate, living outside on the street, on a [...] as of this encounter Progress Notes * Calista Villa RN - 10/21/2024 1:30 PM EST Rashaun Terrell is here today for Opioid Dependence RV. Patient on current Suboxone dose of 2/0.5 mg marialuisa 4 week schedule. Patient has been in the program for 4 years, 10 months Induction date: 01-05-21. LFTs done 04/10/23 HEP A status: Immune HEP B status: Immune HEP C status: 04/10/23: Reactive: HCV RNA <15 HIV status: 04/10/23: Non-reactive N therapist: Tucker ([facility]); Missed sched appt with Dr. Alvarez and is now on a waiting list Research Software Engineer: Yanique VALDOVINOS reviewed by provider. Last PCP appt 04/19/23 [facility] reviewed. LAST VISIT 09/23/24 UTOX: +bup Taking Suboxone 2/0.5 mg every day as prescribed. Has Colace for constipation, does not need refill. Feeling well. Had [facility] intake 06/25; note mentions: Off-site services for Behavioral Health Integration Plan External OP BH therapy referral and OP psychiatry Referral. Today [...] time. Attends day program across street from [facility]. Assessment/Plan Diagnoses and all orders for this visit: Opioid type dependence, continuous ([facility]) Recovery support, harm reduction (including Narcan) and behavioral health attendance reviewed. Continue Suboxone 2/0.5 mg on 4 week schedule. Today UTOX: + bup Rashaun presented today for OBAT RN IN PERSON VISIT for Opioid Use Disorder. He is alert and oriented.Speech clear, coherent and goal directed. Doing well on current suboxone dose. Denies illicit substance use, cravings or side effects. Occasional etoh. Attends [facility], the adult day health program across the street from [facility], but no longer daily, states sometimes. PLAN: Suboxone dosing schedule of 2/0.5 mg daily and management of side effects reviewed. Recovery support, harm reduction (including Narcan), and behavioral health attendance reviewed. Appointment for 4 weeks given. Patient expressed understanding and agreement with continuing plan of care. This information has been disclosed to you from records protected by federal confidentiality rules (42 CFR Part 2). The federal rules prohibit you from making any further disclosure of information inthis record that identifies a patient as having or having had a substance use disorder either directly, by reference to publicly available information, or through verification of such identification by another person unless further disclosure is expressly permitted by the written consent of the individual whose information is being disclosed or as otherwise permitted by (see2.3.1). The federal rules restrict any use of the information to investigate or prosecute with regard to a crime any patient with a substance use disorder, except as provided at 2.12??(5) and 2.65. documented in this encounter Plan of Treatment Upcoming Encounters Date Type Department Care Team (Late st Contact Info) Description 11/18/2024 2:00 PM EDT Office Visit [facility] MEDICINE [address] [place] [address] Robbi Augustine MD [address] [place] [address] 12/09/2024 10:45 AM EDT Office Visit [facility] MEDICINE [address] [place] [address] Eleanor Treviño MD 230 [place] [address] documented as of this encounter Procedures Procedure Name Priority Date/Time Associated Diagnosis Comments POCT TUNDE-14 URINE DRUG SCREEN Routine 10/21/2024 1:50 PM EST Uncomplicated opioid dependence (CMS/HCC) documented in this encounter Results * POCT TUNDE-14 Urine Drug Screen (10/21/2024 1:50 PM EST) THC Negative Cocaine Screen, Urine [...] obtained by clean catch procedure / Unknown 10/21/2024 1:50 PM EST Robbi Augustine MD POINT OF CARE TEST ENTER/EDIT OR DERABLES Final Result documented in this encounter Visit Diagnoses Diagnosis Uncomplicated opioid dependence (CMS/HCC)- Primary documented in this encounter Additional Health Concerns Assessment Noted Time PHQ-9 Depression Total Score: 5 06/25/20 24 11:04 AM EST documented as of this encounter Care Teams Sock Knitter Relationship Specialty Start Date End Date Eleanor Treviño MD [address] [place] [phone] PCP - General Internal Medicine 06/23/24 Lacey Mcmanus Quality Control TechDirect Service Professional 08/07/24 documented as of this encounter
--- OUTSIDE RECORDS SUMMARY | 2024-10-21 16:26 | XMS_ITS | Encounter Summary ---
Author Organization [employer] Address [address] [facility] 7t [place] [address] Care Team Providers Care Project Control Manager Name Role Phone Leonora Vargas Primary Care Provider [phone] Eleanor Treviño MD Primary Care Pro vider Reason for Visit * Reason Onset Date Comments Referral 06/10/2024 Encounter Details Date Type Department Care Team (Late st Contact Info) Description 06/10/2024 Telephone [facility] MEDICINE [address] [place], [place] [phone] Leonora Vargas ANP [address] [place] [address] Referral Social History Tobacco Use Types Packs/Day Years Used Date Smoking Tobacco: Every Day Cigarettes Smokeless Tobacco: Never Comments:Started smoking 17 y of age until now ---smokes 1/2 to 1 PQT a day Alcohol Use Standard Drinks/Week Comments Yes 0 (1 standard drink = 0.6 oz pur e alcohol) binging Depression Answer Date Recorded Patient Health Questionnaire-9 Score 1 08/24/2023 Patient Health Questionnaire-9 Score 1 08/24/2023 Last PHQ-9: Questionnaire Data Not on file 0 08/24/2023 Housing Stability Answer Date Recorded What is your housing situation today? I do not have housing (Staying with others, in a hotel, in a custodial, living outside on the street, on a [...] the past 12 months, has t he [employer], gas, oil or water company threatened to shut off services in your home? No 06/05/2023 Depression Answer Date Recorded Patient Health Questionnaire-2 Score 0 08/24/2023 Sex and Gender Information Value Date Recorded Sex Assigned at Male 06/19/2022 10:18 AM EDT Legal Sex Male 10:18 AM EDT Gender Identity Male 06/19/2022 10:18 AM EDT Sexual Orientation Bisexual 08/24/2023 11 :26 AM EST documented as of this encounter Miscellaneous Notes * Telephone Encounter - Nils Golden - 06/10/2024 11:48 AM EDT Tc from [place] with [facility] requesting a [facility] health referral for pt to [place] with a therapist. Pt stated he's been having conversation with people in his head. Please contact Lacey at [phone]. documented in this encounter Plan of Treatment Upcoming Encounters Date Type Department Care Team (Late st Contact Info) Description 11/18/2024 2:00 PM EDT Office Visit [facility] MEDICINE [address] [place] [address] 228[address] Robbi Augustine MD [address] [place] [address] 12/09/2024 10:45 AM EDT Office Visit [facility] MEDICINE [address] [place] [address] 8[address] Eleanor Treviño MD [address] [place] [address] 97692 documented as of this encounter Visit Diagnoses Not on filedocumented in this encounter Additional Health Concerns Assessment Noted Time PHQ-9 Depression Total Score: 1 08/24/19 24 11:03 AM EST documented as of this encounter Care Teams Project Control Manager Relationship Specialty Start Date End Date Leonora Vargas ANP [address] [place] [address] PCP - General Family Medicine 04/14/22 06/22/24 Eleanor Treviño MD [address] [place] [address] PCP - General Internal Medicine 06/23/24 Lacey Mcmanus Operator ReceptionistRefinery Operator Polymerization Plant 08/07/24 documented as of this encounter
--- OUTSIDE RECORDS SUMMARY | 2024-10-21 16:26 | XMS_ITS | Encounter Summary ---
Author Organization [employer] Address [address] [facility] 7t [place] [address] Care Team Providers Care Basting Marker Name Role Phone Eleanor Treviño MD Primary Care Pro vider Encounter Details Date Type Department Care Team (Latest Contact Info) Description 10/21/2024 Travel Social History Tobacco Use Types Packs/Day [...] Description 11/18/2024 2:00 PM EDT Office Visit [facility] MEDICINE [address] [place] [address] 564[address] Robbi Augustine MD [address] [place] [phone] 12/09/2024 10:45 AM EDT Office Visit [facility] MEDICINE [address] [place] [address] 00760 Eleanor Treviño MD [address] [place] [address] documented as of this encounter Visit Diagnoses Not on filedocumented in this encounter Additional Health Concerns Assessment Noted Time PHQ-9 Depression Total Score: 5 06/25/20 24 11:04 AM EST documented as of this encounter Care Teams Basting Marker Relationship Specialty Start Date End Date Eleanor Treviño MD [address] [place] [phone] PCP - General Internal Medicine 06/23/24 Lacey Mcmanus Drawer MakerYardage Estimator 08/07/24 documented as of this encounter
--- OUTSIDE RECORDS SUMMARY | 2024-10-21 16:26 | XMS_ITS | Encounter Summary ---
Author Organization [employer] Address [address] [facility] 7t [place] [address] Care Team Providers Care Penetration Tester Name Role Phone Eleanor Treviño MD Primary [...] with others, in a hotel, in a senior living, living outside on the street, on a [...] PM EDT Office Visit [facility] MEDICINE [address] [place] [address] [phone] Robbi Augustine MD [address] [place] [address] 12/09/2024 10:45 AM EDT Office Visit [facility] MEDICINE [address] [place] [address] 6[address] Eleanor Treviño MD [address] [place] [address] 57[address] documented as of this encounter Visit Diagnoses Not on filedocumented in this encounter Additional Health Concerns Assessment Noted Time PHQ-9 Depression Total Score: 5 06/25/20 24 11:04 AM EST documented as of this encounter Care Teams Penetration Tester Relationship Specialty Start Date End Date Eleanor Treviño MD [address] [place] [phone] PCP - General Internal Medicine 06/23/24 Lacey Mcmanus Cargo Services CoordinatorStudio Operations Manager 08/07/24 documented as of this encounter
--- OUTSIDE RECORDS SUMMARY | 2024-10-21 16:26 | XMS_ITS | Encounter Summary ---
Author Organization [employer] Address [address] [facility] 7t [place] [address] Care Team Providers Care Dog Pound Attendant Name Role Phone Leonora Vargas Primary Care Provider lEeanor Treviño MD Primary Care Pro vider Encounter Details Date Type Department Care Team (Late st Contact Info) Description 06/20/2023 Orders Only [facility] MEDICINE [address] [place] [address] Calista Villa RN Uncomplicated opioid dependence (CMS/HCC) [...] Description 11/18/2024 2:00 PM EDT Office Visit [facility] MEDICINE [address] [place] [address] 315[address] Robbi Augustine MD [address] [place] [address] [phone] 12/09/2024 10:45 AM EDT Office Visit [facility] MEDICINE [address] [place] [address] 13182 Eleanor Treviño MD [address] [place] [address] [phone] documented as of this encounter Visit Diagnoses Diagnosis Uncomplicated opioid dependence (CMS/HCC)- Primary documented in this encounter Additional Health Concerns Assessment Noted Time PHQ-9 Depression Total Score: 0 02/29/20 23 2:02 PM EDT documented as of this encounter Care Teams Dog Pound Attendant Relationship Specialty Start Date End Date Leonora Vargas ANP [address] [place] [address] [phone] PCP - General Family Medicine 04/14/22 06/22/24 Eleanor Treviño MD [address] [place] [address] [phone] PCP - General Internal Medicine 06/23/24 Lacey Mcmanus Dietetics ProfessorDoll Surgeon 08/07/24 documented as of this encounter
--- OUTSIDE RECORDS SUMMARY | 2024-10-21 16:27 | XMS_ITS | Clinical Summary ---
Author Organization [employer] Address 75 [facility] 7t [place] [address] Care Team Providers Care Security Alarm Installer Name Role Phone Eleanor Treviño MD Primary Care Pro vider Allergies No known active allergies Medications * This document contains information received from the source organization and may not represent a complete record from that organization. Naloxone HCl (NARCAN NA) Administer into affected nostril(s). [place] 0.1 milliliter by intranasal route in 1 [...] y per pt on suboxone -f at [facility] Impaired fasting glucose 02/22/2012 Hepatitis C virus infection without hepatic coma 02/22/2012 Assessment & Plan (08/25/2023 6:48 PM EST): -03/2023 Hep C VL UD Mild intellectual disability 02/22/2012 Encounters * This document contains information received from the source organization and may not represent a complete record from that organization. Date Type Department Care Team Description 10/21/2024 1:30 PM EST Clinical Support [address] [address] Calista Villa RN Uncomplicated opioid dependence (CMS/HCC) (Primary Dx) 10/21/2024 Travel 10/17/2024 Telephone [facility] [address] [place] [phone] Eleanor Treviño MD November10/12/2024 Orders Only GENERIC EXTERNAL DATA DEPARTMENT Provider, Generic External Data 10/09/2024 Refill [facility] [address] [place] [phone] Calista Villa RN Uncomplicated opioid dependence (CMS/HCC) 09/26/2024 Orders Only [facility] [address] [place] [phone] Calista Villa RN Uncomplicated opioid dependence (CMS/HCC) 09/23/2024 2:00 PM EST Office Visit [address] [address] Robbi Augustine MD Opioid type dependence, continuous (CMS/HCC) (Primary Dx) 09/23/2024 Travel 09/17/2024 Refill [facility] [address] [place] [address] Calista Villa RN Uncomplicated opioid dependence (CMS/HCC) 09/04/2024 Orders Only GENERIC EXTERNAL DATA DEPARTMENT Provider, Generic External Data 08/26/2024 1:30 PM EST Office Visit [facility] [address] [place] [address] Robbi Augustine MD Opioid type dependence, continuous (CMS/HCC) (Primary Dx) 08/26/2024 Travel 08/12/2024 Refill [facility] [address] [place] [address] Calista Villa RN Uncomplicated opioid dependence (CMS/HCC) 08/07/2024 Telephone [facility] [address] [place] [phone] Eleanor Treviño MD Care Coordination (ICP digital media coordinator) 07/29/2024 1:45 PM EST Office Visit [facility] [address] [place] [phone] Robbi Augustine MD Uncomplicated opioid dependence (CMS/HCC) (Primary Dx) 07/29/2024 Travel 07/23/2024 Refill [facility] [address] [place] [address] Calista Villa RN Uncomplicated opioid dependence (CMS/HCC) from Last 3 Months Immunizations Name Administration [...] Description 11/18/2024 2:00 PM EDT Office Visit [facility] [address] [place] [address] [phone] Robbi Augustine MD [address] [place] [address] [phone] 12/09/2024 10:45 AM EDT Office Visit [facility] [address] [place] [address] [phone] Eleanor Treviño MD [address] [place] [address] [phone] Health Maintenance Due Date Last Done Comments [...] 08/24/2023, 2012 Depression Screening 06/25/2025 06/25/2024, 06/25/20 Tobacco Screening 09/23/2025 09/23/2024 Dental X-Ray: Full [...] 1:50 PM EST Uncomplicated opioid dependence (CMS/HCC) XR CHEST 2 VIEWS Routine 10/12/2024 2:09 [...] Recently Relevant to Health Maintenance Results * POCT TUNDE-14 Urine Drug Screen (10/21/2024 1:50 PM EST) Only the most recent of4 resultswithin the time period is included. THC [...] TEST ENTER/EDIT OR DERABLES Final Result * XR Chest 2 Views (10/12/2024 2:09 PM EST) Only the most recent of2 resultswithin the time period is included. Anatomical Region Laterality Modality Chest Radiographic Akanksha ging 10/12/2024 2:09 PM EST Narrative 10/12/2024 2:10 PM EST ? [facility] ?[address] ?[place] [address] ?XRay Report ? Signed ? Patient: Terrell,Rashaun ?MR#: [id number] ? : 1980 ?Acct:[id number] ? Age/Sex: 44 / M ?ADM Date: 10/12/24 ? Loc: HO.ED ? Attending Dr: ? Ordering Physician: Lamar Sol CNP ?? Date of Service: 10/12/24 ?? Procedure(s): XR chest 2V ?? Accession Number(s): [id number] ? cc: Lamar Sol CNP; [facility] ? CLINICAL HISTORY: cough, SOB ? [...] by Violet Tiwari MD in OV> ? 10/12/249 ? DD/ 08 ? TD/TT: 10/12/241408 ? Crown Ironer Operator: ? Procedure Note Jj Castañeda - 10/12/2024 [place] [address] XRay Report Signed Patient: Sahil Terrell#: [id number] : 1980Acct:[id number] Age/Sex: 44 / MADM Date: 10/12/24 Loc: HO.ED Attending Dr: Ordering Physician: Lamar Sol CNP Date of Service: 10/12/24 Procedure(s): XR chest 2V Accession Number(s): [id number] cc: Lamar Sol CNP; [facility] CLINICAL HISTORY: cough, SOB 2 view [...] Tiwari MD in OV> 10/12/24 1409 DD/ 08 TD/TT: 10/12/241408 Crown Ironer Operator: [facility] External Provider IMG XR PROCEDURES Edited Result - Final * SARS-CoV-2 RNA, Influenza A/B, and RSV RNA, Ql NAAT (10/12/2024 1:25 PM EST) Only the most recent of2 resultswithin the time period is included. Influenza A PCR NEGATIVE Negative [facility] Influenza B PCR NEGATIVE Negative [facility] Resp Syncy Virus RNA Qual PCR NEGATIVE Negative [facility] SARS COV2 PCR NEGATIVE Negative [facility] Comment:All test results mus t [...] use by authorized laboratories.Testing performed on the [employer] GeneXpert utilizingreal-time RT-PCR.All SARS CoV2 and positive influenza A/B results arereported to [facility]. 10/12/2024 1:25 PM EST 10/12/2024 1:47 PM EST Generic External Data Provider LAB MICROBIOLOGY - GENERAL ORDERABLES Final Result [facility] [address] [place] [phone] [phone] * HIV-1/2 Antigen and Antibodies, Fourth Generation, with Reflexes (09/21/2023 11:30 AM EST) HIV AB/AG Nonreactive Nonreactive [facility] Comment:HIV-1 p24 Ag and/or HIV-1/HIV-2 Ab not detected.A test result that is nonreactive does not exclude thepossibility of exposure to or infection with HIV-1 and/orHIV-2. Nonreactive results in this assay for individualswith prior exposure to HIV-1 and/or HIV-2 may be due toantigen and antibody levels that are below the limit ofdetection of this assay.The Fanvibe HIV Ag/Ab Combo assay result andsupplemental assay results should be interpreted inconjunction with the patient's clinical presentation,history and other laboratory results. If the results areinconsistent with clinical evidence, additional testing issuggested to confirm the result. Blood Venous blood specimen / Unknown 09/21/2023 11:30 AM EST 09/21/2023 1:10 PM EST us Eleanor Craig MD LAB BLOOD ORDERAB LES Final Result [facility] [address] [place] [phone] * (ABNORMAL) Lipid Panel, Standard (09/21/2023 11:30 AM EST) Triglycerides 206(H) <150 mg/dL [facility] Comment:Desirable Triglyceri de: less than 150 mg/dLBorderline High Triglyceride 150-199 mg/dLHigh Triglyceride: 200-499 mg/dLVery High Triglyceride: greater than or equal to 5OO mg/dL Cholesterol 156 <200 mg/dL [facility] Comment:Desirable Cholestero l: less than 200 mg/dLBorderline High Cholesterol: 200-239 mg/dLHigh Cholesterol: greater than 239 mg/dL LDL Cholesterol Calculated 87 <100 mg/dL [facility] Comment:Desirable LDL: less than 100 mg/dLNear Optimal/Above Optimal LDL: 110- 129 mg/dLBorderline High LDL: 130-159 mg/dLHigh LDL: 160-189 mg/dLVery High LDL: greater than or equal to 190 mg/dL HDL Cholesterol 28(L) >40 mg/dL [facility] Comment:Desirable HDL: great er than 40 mg/dL Note: This HDL assay may give artificially low results in patients with liver disease. Blood Venous blood specimen / Unknown 09/21/2023 11:30 AM EST 09/21/2023 1:10 PM EST Eleanor Craig MD LAB BLOOD ORDERAB LES Final Result [facility] [address] [place] [address] [phone] from Last 3 Months or Most Recently Relevant to Health Maintenance Insurance [facility] C3 DENTAL-[facility] MEDICAID STAND ADULT Care Teams Security Alarm Installer Relationship Specialty Start Date End Date Eleanor Treviño MD [address] [place] [phone] PCP - General Internal Medicine 06/23/24 Lacey Mcmanus Day Care WorkerRoof Foreman 08/07/24
[2024-10-21 16:46] LABS: Alanine Aminotransferase 24 U/L (0-40); Albumin Level 4.1 g/dL (3.5-5.0); Alkaline Phosphatase 87 U/L (39-117); Aspartate Amino Transferase 22 U/L (5-37); Bilirubin Direct 0.1 mg/dL (0.0-0.5); Bilirubin Total 0.5 mg/dL (0.0-1.0); Total Protein 7.2 g/dL (6.5-8.0)
[2024-10-22 08:05] LABS: Syphilis Screen Nonreactive (Nonreactive)
[2024-10-22 08:32] LABS: HIV AB/AG Nonreactive (Nonreactive); HIV Num 1 0.06 S/CO (0.00-0.99); ~Hepatitis C Antibody Reactive (Nonreactive)
[2024-10-22 08:35] LABS: Hepatitis A Antibody IgG REACTIVE (Nonreactive); ~Hepatitis A Antibody IgG 10.28 S/CO (0.00-0.99)
[2024-10-24 11:49] LABS: TS Negative Control Passed; TS Panel A 0; TS Panel B 2; TS Positive Control Passed; TSpotTB Negative (Negative)
[2024-10-25 14:48] LABS: HCV Log PCR <1.18 NOT DETECTED Log IU/mL (NOT DETECTED); HepC Viral Load <15 NOT DETECTED IU/mL (NOT DETECTED)
== END 2024-10-21 13:10 | disposition home or self-care (01) ==
LOC: HO.HHCL 13:09
PROVIDERS: Visit Provider Emergency Medicine
DX: F11.20 Opioid dependence, uncomplicated (principal)
CPT/HCPCS: 36415; 80076; 86481; 86708; 86780; 86803; 87389; 87522

== ENCOUNTER 2025-06-02 13:32 | Outpatient (REF) | payer MEDICAID, SELFPAY ==
--- OUTSIDE RECORDS SUMMARY | 2025-06-02 14:00 | XMS_ITS | Encounter Summary ---
Author Organization [employer] Address [address] [facility] 7t [place] [address] Care Team Providers Care Grooving Machine Operator Name Role Phone Eleanor Treviño MD Primary Care Pro vider Reason for Visit * Reason Comments [facility] F/U Encounter Details Date Type Department Care Team (Latest Contact Info) Description 06/02/2025 2:00 PM EDT Clinical Support [facility] [address] [place] [address] Calista Villa RN Uncomplicated opioid dependence (CMS/HCC) ([facility]) Social History Tobacco Use Types Packs/Day Years Used Date Smoking Tobacco: Every Day Cigarettes Smokeless Tobacco: Never Comments:Started smoking 17 y of age until now ---smokes 1 PQT a day . Alcohol Use Standard Drinks/Week Comments Yes 0 (1 standard drink = 0.6 oz pure alcohol) binging aprox once a week 5-6 large beer canes Depression Answer Date Recorded Patient Health Questionnaire-9 Score 0 06/02/2025 Patient Health Questionnaire-9 Score 0 06/02/2025 Last PHQ-9: Questionnaire Data Not on file 1 Housing Stability Answer Date Recorded What is your housing situation today? I have mikalanabela birch 12/09/[address] you li ve. Do you have problems with any of the following? None of the above 12/09/2024 Food Insecurity Answer Date Recorded Within the past 12 months, y ou worried that your food would run out before you got money to buy more: Never True 12/09/2024 Within the past 12 months,th e food you bought just didn't last and you didn't have enough money to get more: Never True Transportation Answer Date Recorded In the past 12 months, has l ack of transportation kept you from medical appts, meetings, work or from getting things needed for daily living? No 12/09/2024 Utilities Answer Date Recorded In the past 12 months, has t he electric, gas, oil or water company threatened to shut off services in your home? No 12/09/2024 Depression Answer Date Recorded Patient Health Questionnaire-2 Score 0 06/02/2025 Internet Access Answer Date Recorded Internet Access Q1 Yes 12/09/2024 Internet Access Q2 Not on file 12/09/2024 Sex and Gender Information Value Date Recorded Sex Assigned at Male 06/19/2022 10:18 AM EDT Legal Sex Male 10:18 AM EDT Gender Identity Male 06/19/2022 10:18 AM EDT Sexual Orientation Bisexual 08/24/2023 11 :26 AM EST documented as of this encounter Functional Status * Over the past 2 weeks, how often have you been bothered by any of the following problems? Question Answer Date of Assessment Author Patient Health Questionnaire -2 Score 0 06/02/2025 1:49 PM Mookie Hansen ra, [place] * Little interest or pleasure in doing things Answer Date of Assessment Author Not at all 06/02/2025 1:49 PM Vianey Hansen MA * Feeling down, depressed, or hopeless Answer Date of Assessment Author Not at all 06/02/2025 1:49 PM Vianey Hansen MA * Trouble falling or staying asleep, or sleeping too much Answer Date of Assessment Author Not at all 06/02/2025 1:49 PM Vianey Hansen MA * Feeling tired or having little energy Answer Date of Assessment Author Not at all 06/02/2025 1:49 PM Vianey Hansen MA * Poor appetite or overeating Answer Date of Assessment Author Not at all 06/02/2025 1:49 PM Vianey Hansen MA * Feeling bad about yourself - or that you are a failure or have let yourself or your family down Answer Date of Assessment Author Not at all 06/02/2025 1:49 PM Vianey Hansen MA * Trouble concentrating on things, such as reading the newspaper or watching television Answer Date of Assessment Author Not at all 06/02/2025 1:49 PM Vianey Hansen MA * Moving or speaking so slowly that other people could have noticed? Or the opposite - being so fidgety or restless that you have been moving around a lot more than usual. Answer Date of Assessment Author Not at all 06/02/2025 1:49 PM Vianey Hansen MA * Thoughts that you would be better off or hurting yourself in some way Answer Date of Assessment Author Not at all 06/02/2025 1:49 PM Vianey Hansen MA * Patient Health Questionnaire-9 Score Answer Date of Assessment Author 0 06/02/2025 1:49 PM Vianey Hansen MA documented as of this encounter Progress Notes * Calista Villa RN - 06/02/2025 2:00 PM EDT HPI Rashaun Terrell is here today for Opioid Dependence RV. Patient on current Suboxone dose of 2/0.5 mg marialuisa 4 week schedule. Patient has been in the program for 4 years, 5 months. Induction date: 01-05-21. LFTs done 10/21/24 HEP A status: Immune HEP B status: Immune HEP C status: 10/21/24 Reactive: HCV RNA <15 HIV status: 10/21/24: Non-reactive [facility] therapist: Garrett Celeste); Missed sched appt with Dr. Alvarez and is now on a waiting list. Clinic Supervisor: Yanique VALDOVINOS reviewed by provider. Last PCP appt 12/09/2024 [facility] reviewed. LAST VISIT 05/05/25 UTOX: +bup Aircraft Restorer: Tabatha Escobar reviewed. UTOX: was not requested Taking Suboxone 2/0.5 mg every day as prescribed, cuts 2 mg strip in half and takes one half strip twice daily Has Colace for constipation, does not need refill. Feeling well. Had [facility] intake 06/25/2024; note mentions: Off-site services for Behavioral Health Integration Plan External OP BH therapy referral and OP psychiatry Referral. Garrett is looking into referral. She spoke to Rashaun' mother, and Rashaun will be referred to counselorand psychiatrist. Lives with parents. Has 2 children ages 7 and 12 who live with their mother Occasional EtOH. Smoking 1/2 PPD. He tried nicotine lozenges, declined patches. States that he wants to continue smoking, declines further NRT at this time. Attends day program across street from [facility]. Assessment/Plan Diagnoses and all orders for this visit: Uncomplicated opioid dependence ([facility]) Recovery support, harm reduction (including Narcan) and behavioral health attendance reviewed. Continue Suboxone 2/0.5 mg on 4 week schedule. Has Narcan. - POCT TUNDE-14 Urine Drug Screen TODAY 06/02/25 UTOX not requested today Rashaun presented today for [facility] RN IN PERSON VISIT for Opioid Use Disorder. He is alert and oriented.Speech clear, coherent and goal directed. Doing well on current suboxone dose. Denies illicit substance use, cravings or side effects. Had labwork drawn today. PLAN: Suboxone dosing schedule of 2/0.5 mg [...] Care Team (Late st Contact Info) Description 06/30/2025 1:30 PM EST Office Visit [facility] [address] [place] [address] [phone] Robbi Augustine MD [address] [place] [address] documented as of this encounter Visit Diagnoses Diagnosis Uncomplicated opioid dependence (CMS/HCC) (HCC) documented in this encounter Additional Health Concerns Assessment Noted Time PHQ-9 Depression Total Score: 0 06/02/20 25 1:49 PM EDT documented as of this encounter Care Teams Grooving Machine Operator Relationship Specialty Start Date End Date Eleanor Treviño MD [address] [place] [address] [phone] PCP - General Internal Medicine 06/23/24 Lacey Mcmanus Chucking Machine OperatorMaintenance Service Supervisor 08/07/24 documented as of this encounter
--- OUTSIDE RECORDS SUMMARY | 2025-06-02 16:25 | XMS_ITS | Encounter Summary ---
Author Organization [employer] Address 75 [facility] 7t [place] [address] Care Team Providers Care Provider Service Representative Name Role Phone Leonora Vargas Primary Care Provider Eleanor Treviño MD Primary Care Pro vider Encounter Details Date Type Department Care Team (Late st Contact Info) Description 06/20/2023 Orders Only [facility] [address] [place] [address] Calista Villa RN Uncomplicated opioid dependence (CMS/HCC) [...] Description 06/30/2025 1:30 PM EST Office Visit [facility] [address] [place] [phone] Robbi Augustine MD [address] [place] [phone] Scheduled Orders Name Type Priority Associated Diagnoses Orde r Schedule T-SPOT .TB Lab Routine Uncomplicated opioid dependence (CMS/HCC) Expected: 06/20/2023 (Approximate), Expires: 06/20/2024 documented as of this encounter Visit Diagnoses Diagnosis Uncomplicated opioid dependence (CMS/HCC) (HCC)- Primary documented in this encounter Additional Health Concerns Assessment Noted Time PHQ-9 Depression Total Score: 0 02/29/20 23 2:02 PM EDT documented as of this encounter Care Teams Provider Service Representative Relationship Specialty Start Date End Date Leonora Vargas ANP [address] [place] [phone] PCP - General Family Medicine 04/14/22 06/22/24 Eleanor Treviño MD [address] [place] [address] [phone] PCP - General Internal Medicine 06/23/24 Lacey Mcmanus Church Business AdministratorMold Closer Helper 08/07/24 documented as of this encounter
--- OUTSIDE RECORDS SUMMARY | 2025-06-02 16:25 | XMS_ITS | Encounter Summary ---
Author Organization [employer] Address 75 [facility] 7t [place] [address] Care Team Providers Care Staking Engineer Name Role Phone Eleanor Treviño MD Primary Care Pro vider Encounter Details Date Type Department Care Team (Latest Contact Info) Description 06/02/2025 Travel Social History Tobacco Use Types Packs/Day [...] is your housing situation today? I have mikal birch 12/09/[address] you [...] t he electric, gas, oil or water [employer] threatened to shut off services in your [...] Hansen MA documented as of this encounter Plan of Treatment Upcoming Encounters Date Type Department Care Team (Late st Contact Info) Description 06/30/2025 1:30 PM EST Office Visit [facility] [address] [place] [address] [phone] Robbi Augustine MD [address] [place] [phone] documented as of this encounter Visit Diagnoses Not on filedocumented in this encounter Additional Health Concerns Assessment Noted Time PHQ-9 Depression Total Score: 0 06/02/20 25 1:49 PM EDT documented as of this encounter Care Teams Staking Engineer Relationship Specialty Start Date End Date Eleanor Treviño MD [address] [place] [address] [phone] PCP - General Internal Medicine 06/23/[address] WorkerProject Safety Manager 08/07/24 documented as of this encounter
--- OUTSIDE RECORDS SUMMARY | 2025-06-02 16:25 | XMS_ITS | Encounter Summary ---
Author Organization [employer] Address 75 [facility] 7t [place] [address] Care Team Providers Care Supervisor Safety Deposit Name Role Phone Leonora Vargas Primary Care Provider [phone] Eleanor Treviño MD Primary Care Pro vider Encounter Details Date Type Department Care Team (Late st Contact Info) Description 06/20/2023 Orders Only [facility] [address] [place] [address] Calista Villa RN Uncomplicated opioid dependence (CMS/HCC) [...] with others, in a hotel, in a correction, living outside on the street, on a [...] Description 06/30/2025 1:30 PM EST Office Visit [facility] [address] [place] [phone] Robbi Augustine MD [address] [place] [phone] Scheduled Orders Name Type Priority Associated Diagnoses [...] documented as of this encounter Care Teams Supervisor Safety Deposit Relationship Specialty Start Date End Date Leonora Vargas ANP [address] [place] [phone] PCP - General Family Medicine 04/14/22 06/22/24 Eleanor Treviño MD [address] [place] [address] [phone] PCP - General Internal Medicine 06/23/24 Lacey Mcmanus PostmasterMedical Records Field Technician 08/07/24 documented as of this encounter
--- OUTSIDE RECORDS SUMMARY | 2025-06-02 16:25 | XMS_ITS | Encounter Summary ---
Author Organization [employer] Address 75 [facility] 7t [place] [address] Care Team Providers Care Community Services Manager Name Role Phone Eleanor Treviño MD Primary Care Pro vider Encounter Details Date Type Department Care Team (Late st Contact Info) Description 09/26/2024 Orders Only [facility] [address] [place] [address] Calista Villa RN Uncomplicated opioid dependence ([facility]) Social History Tobacco Use Types Packs/Day Years [...] with others, in a hotel, in a penitentiary, living outside on the street, on a [...] Description 06/30/2025 1:30 PM EST Office Visit [facility] [address] [place] [address] Robbi Augustine MD [address] [place] [address] Scheduled Orders Name Type Priority Associated Diagnoses [...] dependence (CMS/HCC) Expected: 09/26/2024 (Approximate), Expires: 09/26/2025 T-SPOT .TB Lab Routine Uncomplicated opioid dependence (CMS/HCC) Expected: 09/26/2024 (Approximate), Expires: 09/26/2025 documented as of this encounter Visit Diagnoses Diagnosis Uncomplicated opioid dependence (CMS/HCC) (HCC) documented in this encounter Additional Health Concerns Assessment Noted Time PHQ-9 Depression Total Score: 5 06/25/20 24 11:04 AM EST documented as of this encounter Care Teams Community Services Manager Relationship Specialty Start Date End Date Eleanor Treviño MD [address] [place] [phone] PCP - General Internal Medicine 06/23/24 Lacey Mcmanus Service Center ManagerBranch Maker 08/07/24 documented as of this encounter
--- OUTSIDE RECORDS SUMMARY | 2025-06-02 16:25 | XMS_ITS | Encounter Summary ---
Author Organization [employer] Address 75 [facility] 7t [place] [address] Care Team Providers Care Ballpoint Pen Assembly Machine Operator Name Role Phone Leonora Vargas Primary Care Provider [phone] Eleanor Treviño MD Primary Care Pro vider Reason for Visit * Reason Onset Date Comments Referral 06/10/2024 Encounter Details Date Type Department Care Team (Late st Contact Info) Description 06/10/2024 Telephone [facility]INE [address] [place], [place] [phone] Leonora Vargas ANP [address] [place], [place] [phone] Referral Social History Tobacco Use Types Packs/Day [...] - 06/10/2024 11:48 AM EDT Tc from [place] [facility] with a therapist. Pt stated he's been having conversation with people in his head. Please contact Lacey at [phone]. documented in this encounter Plan of Treatment Upcoming Encounters Date Type Department Care Team (Late st Contact Info) Description 06/30/2025 1:30 PM EST Office Visit [facility]INE [address] [place] [address] Robbi Augustine MD [address] [place] [address] documented as of this encounter Visit Diagnoses Not on filedocumented in this encounter Additional Health Concerns Assessment Noted Time PHQ-9 Depression Total Score: 1 08/24/19 24 11:03 AM EST documented as of this encounter Care Teams Ballpoint Pen Assembly Machine Operator Relationship Specialty Start Date End Date Leonora Vargas ANP [address] [place] [address] PCP - General Family Medicine 04/14/22 06/22/24 Eleanor Treviño MD [address] [place] [phone] PCP - General Internal Medicine 06/23/24 Lacey Mcmanus RoadmasterClinical Rn Manager 08/07/24 documented as of this encounter
--- OUTSIDE RECORDS SUMMARY | 2025-06-02 16:25 | XMS_ITS | Clinical Summary ---
Author Organization [facility] Address [address] [place] [address] Care Team Providers Care Psychologist Research Assistant Name Role Phone Unavailable Primary Care Provider Unavailabl e Social History Tobacco Use Types Packs/Day Years Used Date Smoking Tobacco: Never Assessed Sex and Gender Information Value Date Recorded Sex Assigned at Not on file Legal Sex Male 6:21 PM EST Gender Identity Not on file Sexual Orientation Not on file Plan of Treatment Health Maintenance Due Date Last Done Comments Hepatitis C Virus Screening 1978 HIV Screening 1991 DTaP/Tdap/Td Vaccines (1 - Tdap) 1997 Hepatitis B Vaccines (1 of 3 - 19+ 3-dose series) 1997 COVID-19 Vaccine (2023-2 5 season) 2025 Pneumococcal Vaccine: Pediat kenyatta (0-5 Years) and At-Risk Patients (6 to 49 Years) Aged Out No longer eligible b ased on patient's age to complete this topic
--- OUTSIDE RECORDS SUMMARY | 2025-06-02 16:25 | XMS_ITS | Encounter Summary ---
Author Organization [employer] Address [address] [facility] 7t [place] [address] Care Team Providers Care Asbestos Textile Supervisor Name Role Phone Leonora Vargas Primary Care Provider [phone] Eleanor Treviño MD Primary Care Pro vider Encounter Details Date Type Department Care Team (Late st Contact Info) Description 06/20/2023 Orders Only [facility] [address] [place] [address] Calista Villa RN Social History Tobacco Use [...] with others, in a hotel, in a chcf, living outside on the street, on a [...] Description 06/30/2025 1:30 PM EST Office Visit [facility] [address] [place] [phone] Robbi Augustine MD [address] [place] [phone] documented as of this encounter Visit Diagnoses Not on filedocumented in this encounter Additional Health Concerns Assessment Noted Time PHQ-9 Depression Total Score: 0 02/29/20 23 2:02 PM EDT documented as of this encounter Care Teams Asbestos Textile Supervisor Relationship Specialty Start Date End Date Leonora Vargas ANP [address] [place] [phone] PCP - General Family Medicine 04/14/22 06/22/24 Eleanor Treviño MD [address] [place] [phone] PCP - General Internal Medicine 06/23/24 Lacey Mcmanus Hat PresserAssociate Professor Of Biology 08/07/24 documented as of this encounter
--- OUTSIDE RECORDS SUMMARY | 2025-06-02 16:25 | XMS_ITS | Encounter Summary ---
Author Organization [facility] Address [address] [place] [address] Care Team Providers Care Amusement Machine Mechanic Name Role Phone Unavailable Primary Care Provider Unavailabl e Encounter Details Date Type Department Care Team (Late st Contact Info) Description 09/03/2020 Scanned Document [facility] [place] [address] [place] [id number] Winsome Hart, DEFLASH AND WASH OPERATOR [address] [place] [address] Social History Tobacco Use Types Packs/Day Years [...]
--- OUTSIDE RECORDS SUMMARY | 2025-06-02 16:25 | XMS_ITS | Encounter Summary ---
Author Organization [employer] Address [address] [facility] [address]t [place] [address] Care Team Providers Care Front Load Trash Truck Driver Name Role Phone Leonora Vargas Primary Care Provider [phone] Eleanor Treviño MD Primary Care Pro vider Encounter Details Date Type Department Care Team (Late st Contact Info) Description 06/20/2023 Orders Only [facility] [address] [place] [address] Calista Villa RN Uncomplicated opioid dependence (CMS/HCC) [...] 1:30 PM EST Office Visit [facility] [address] [place] [phone] Robbi Augustine MD [address] [place] [phone] documented as of this encounter Visit Diagnoses Diagnosis Uncomplicated opioid dependence (CMS/HCC) (HCC)- Primary documented in this encounter Additional Health Concerns Assessment Noted Time PHQ-9 Depression Total Score: 0 02/29/20 23 2:02 PM EDT documented as of this encounter Care Teams Front Load Trash Truck Driver Relationship Specialty Start Date End Date Leonora Vargas ANP [address] [place] [phone] PCP - General Family Medicine 04/14/22 06/22/24 Eleanor Treviño MD [address] [place] [phone] PCP - General Internal Medicine 06/23/24 Lacey Mcmanus Mail RiderCustomer Service Agent 08/07/24 documented as of this encounter
--- OUTSIDE RECORDS SUMMARY | 2025-06-02 16:25 | XMS_ITS | Clinical Summary ---
Author Organization [employer] Address [address] [facility] 7t [place] [address] Care Team Providers Care Case Management Associate Name Role Phone Eleanor Treviño MD Primary Care Pro vider Allergies No known active allergies Medications * This document contains information received from the source organization and may not represent a complete record from that organization. Naloxone HCl (NARCAN NA) Administer into affected nostril(s). [place] 0.1 milliliter by intranasal route in 1 nostril may repeat dose every 2-3 minutes as needed alternating nostrils with each dose 021 Active docusate sodium (Colace) 100 MG capsuleIndicati ons:Uncomplicat ed opioid dependence (CMS/HCC) (HCC) TAKE 1 CAPSULE BY MOUTH TWICE DAILY NEEDED CONSTIPATION 180 capsule 1 023 Active QUEtiapine (SEROquel) 25 MG tablet Take 1 tablet (25 mg) by mouth at bedtime. 30 tablet 1 025 Active albuterol 108 (90 Base) MCG/ACT inhalerIndicati ons:Mild intermittent asthma in adult without complication Inhale 2 puffs every 6 (six) hours if needed for wheezing. 18 g 3 025 2025 Active fluticasone-brenden meterol (Advair) 115-21 MCG/ACT inhaler Inhale 2 puffs in the morning and at bedtime. Rinse mouth with water after use to reduce aftertaste and incidence of candidiasis. Do not swallow. 12 g 3 025 2025 Active buprenorphine-n aloxone (Suboxone) 2-0.5 MG per sublingual filmIndications :Uncomplicated opioid dependence (CMS/HCC) ([facility]) Place 1 Film under the tongue Once per day for 28 days. 28 Film 025 2024 Active buprenorphine-n aloxone (Suboxone) 2-0.5 MG per sublingual filmIndications :Uncomplicated opioid dependence (CMS/HCC) (HCC) Place 1 Film under the tongue Once [...] for tobacco cessation but refusing Asthma 04/11/2012 Severe episode of recurrent major depressive disorder, with psychotic features (CMS/HCC) 04/11/2012 Uncomplicated opioid dependence (CMS/HCC) 2011 Assessment & Plan (08/25/2023 6:51 PM EST): PHQ9 1 MARIA A 3, no SI, no hallucinations no rhona , no fx hx of pyshc dx hx of heroin and cocaine use --snort and IVDU-not using for last 3-4 y per pt on suboxone -f at [facility] Impaired fasting glucose 02/22/2012 Hepatitis C virus infection without hepatic coma 02/22/2012 Assessment & Plan (08/25/2023 6:48 PM EST): -03/2023 Hep C VL UD Mild intellectual disability 02/22/2012 Encounters Date Type Department Care Team Description 06/02/2025 2:00 PM EDT Clinical Support [facility] [place] [address] Calista Villa RN Uncomplicated opioid dependence (CMS/HCC) (HCC) 06/02/2025 Travel 05/26/2025 Refill [facility] [address] [facility] [place] [address] Calista Villa RN Uncomplicated opioid dependence (CMS/HCC) (HCC) 05/05/2025 1:30 PM EDT Office Visit [facility] [place] [address] Robbi Augustine MD Uncomplicated opioid dependence (CMS/HCC) (Primary Dx) 05/05/2025 Travel 04/29/2025 Refill [facility] [place] [address] Calista Villa RN Uncomplicated opioid dependence (CMS/HCC) 04/07/2025 2:15 PM EDT Clinical Support [facility] [place] [address] Calista Villa RN Uncomplicated opioid dependence (CMS/HCC) 04/07/2025 Travel 04/03/2025 Refill [facility] [place] [address] Calista Villa RN Uncomplicated opioid dependence ([facility]/HCC) 03/10/2025 2:00 PM EDT Office Visit [facility] [address] [place] [phone] Robbi Augustine MD Uncomplicated opioid dependence (CMS/HCC) (Primary Dx) 03/10/2025 Travel 03/04/2025 Telephone [facility] [address] [place] [phone] Ligia Maxwell, ALEXANDREA Care Coordination 03/04/2025 Refill [facility] [address] [place] [phone] Calista Villa RN Uncomplicated opioid dependence (CMS/HCC) from Last 3 Months Immunizations Immunization Administration Dates Next Due Influenza injectable quadriv alent preservative free 08/24/2023 Influenza, Split (incl. dequan fied surface antigen) 08/29/2012 Moderna Covid-19 Vaccine 12+ 09/06/2021,01/19/20 21,12/10/2020 Pfizer Covid-19 Vaccine 12+ 12/09/2024, 4 Pneumococcal Conjugate PCV 20 08/24/2023 TD (adult), [...] Sign Reading Time Taken Comments Blood Pressure 115/66 12/09/2024 11:00 AM EDT Pulse 87 12/09/2024 11:00 AM EDT Temperature 35.9 C (96.7 F) 12/09/2024 11:00 AM EDT Respiratory Rate 18 12/09/2024 11:00 AM EDT Oxygen Saturation 99% 12/09/2024 11:00 AM EDT Inhaled Oxygen Concentration - - Weight 73 kg (161 lb) 12/09/2024 11:00 AM EDT Height 180.3 cm (5' 11 ) 12/09/2024 11:00 AM EDT Body Mass Index 22.45 12/09/2024 11:00 AM EDT Plan of Treatment Upcoming Encounters Date Type Department Care Team (Late st Contact Info) Description 06/30/2025 1:30 PM EST Office Visit [facility] [address] [place] [address] Robbi Augustine MD [address] [place] [address] Health Maintenance Due Date Last Done Comments CT Colonography 1978 Colonoscopy 1978 Colorectal Cancer Screening 1978 Dental Prophylaxis 1978 Dental X-Ray: Bitewings 1978 FIT DNA/Cologuard 1978 FIT 1978 FOBT 1978 Sigmoidoscopy 1978 Family Planning (PISQ) 1993 Hepatitis A Vaccines (1 of 2 - Risk 2-dose series) 1997 Hepatitis B Vaccines (1 of 3 - 19+ 3-dose series) 1997 Dental Oral Exam 02/26/2014 08/28/2013 Influenza Vaccine (#1) 2025 08/24/2023, 2012 Disability Screening 12/09/2025 12/09/2024 SDOH Screening 12/09/2025 12/09/2024 Tobacco Screening 05/05/2026 05/05/2025 Alcohol/Substance Use Screening 06/02/2026 06/02/2025 Depression Screening 06/02/2026 06/02/2025, 06/02/20 Dental X-Ray: Full Mouth 07/24/2026 07/23/2023 Zoster Vaccines (1 of 2) 2028 Lipid Panel 09/21/2028 09/21/2023 DTaP/Tdap/Td Vaccines (3 - Td or Tdap) 02/28/2033 02/28/2023, 02/23/2012 RSV Patients and Patients Aged 60 years or older (1 - 1-dose 75+ series) 2053 Pneumococcal Vaccine: Pediatrics (0 to 5 Years) and At-Risk Patients (6 to 49) Years Completed 08/24/2023 HIV Screening Completed 10/21/2024, 09/2023, 04/10/2023, Additional history exists COVID-19 Vaccine Completed 12/09/2024, 12/2023, 09/06/2021, Additional history exists HIB Vaccines Aged Out No longer eligi ble based on patient's age to complete this topic HPV Vaccines Aged Out No longer eligi ble based on patient's age to complete this topic IPV Vaccines Aged Out No longer eligi ble based on patient's age to complete this topic Meningococcal B Vaccine Aged Out No l onger eligible based on patient's age to complete [...] Comments POCT TUNDE-14 URINE DRUG SCREEN Routine 05/05/2025 12:58 PM EDT Uncomplicated opioid dependence (CMS/HCC) HIV 1/2 ANTIGEN/ANTIBODY, FOURTH GENERATION W/RFL Routine 10/21/2024 1:12 PM EST LIPID PANEL, STANDARD Routine 09/21/2023 11:30 AM EST Annual physical exam PANORAMIC RADIOGRAPHIC IMAGE Routine 07/23/2023 1:00 PM EST COMPREHENSIVE ORAL EVALUATION - NEW OR ESTABLISHED PATIENT Routine 08/28/2013 12:00 AM EST from Last 3 Months or Most Recently Relevant to Health Maintenance Results * (ABNORMAL) POCT TUNDE-14 Urine Drug Screen (05/05/2025 12:58 PM EDT) THC Negative Negative Cocaine Screen, Urine Negative Negative Opiate Screen, Urine Negative Negative Methamphetamine Screen Urine Negative Negative Amphetamine Screen, Urine Negative Negative Benzodiazepines Screen, Urine Negative Negative Barbiturate Screen, Urine Negative Negative Methadone Screen, Urine Negative Negative Buprenophine Screen, Urine Positive(A) Negative TCA, Urine Negative Negative MDMA Urine Negative Negative ng/mL Oxycodone Screen, Urine Negative Negative Phencyclidine (PCP), Urine Negative Negative Fentanyl, Urine Negative Negative Urine Urine specimen obtained by clean catch procedure / Unknown 05/05/2025 12:58 PM EDT Robbi Augustine MD POINT OF CARE TEST ENTER/EDIT OR DERABLES Final Result * HIV-1/2 Antigen and Antibodies, Fourth Generation, with Reflexes (10/21/2024 1:12 PM EST) Pathologist [facility] HIV AB/AG Nonreactive Nonreactive [facility] Comment:HIV-1 p24 Ag and/or HIV-1/HIV-2 Ab not detected.A test result that is nonreactive does not exclude thepossibility of exposure to or infection with HIV-1 and/orHIV-2. Nonreactive results in this assay for individualswith prior exposure to HIV-1 and/or HIV-2 may be due toantigen and antibody levels that are below the limit ofdetection of this assay.The [employer] HIV Ag/Ab Combo assay result andsupplemental assay results should be interpreted inconjunction with the patient's clinical presentation,history and other laboratory results. If the results areinconsistent with clinical evidence, additional testing issuggested to confirm the result. 10/21/2024 1:12 PM EST 10/21/2024 4:06 PM EST us Robbi Augustine MD LAB BLOOD ORDERABLES Final Resul t Performing Organization Address [facility] Co de Phone Number [facility] [address] [place] [phone] * (ABNORMAL) Lipid Panel, Standard (09/21/2023 11:30 AM EST) Triglycerides 206(H) <150 mg/dL [facility] Comment:Desirable Triglyceri de: less than 150 mg/dLBorderline High Triglyceride 150-199 mg/dLHigh Triglyceride: 200-499 mg/dLVery High Triglyceride: greater than or equal to 5OO mg/dL Cholesterol 156 <200 mg/dL [facility] Comment:Desirable Cholestero l: less than 200 mg/dLBorderline High Cholesterol: 200-239 mg/dLHigh Cholesterol: greater than 239 mg/dL LDL Cholesterol Calculated 87 <100 mg/dL [facility] Comment:Desirable LDL: less than 100 mg/dLNear Optimal/Above Optimal LDL: 110- 129 mg/dLBorderline High LDL: 130-159 mg/dLHigh LDL: 160-189 mg/dLVery High LDL: greater than or equal to 190 mg/dL HDL Cholesterol 28(L) >40 mg/dL [facility] Comment:Desirable HDL: great er than 40 mg/dL Note: This HDL assay may give artificially low results in patients with liver disease. Blood Venous blood specimen / Unknown 09/21/2023 11:30 AM EST 09/21/2023 1:10 PM EST us Eleanor Craig MD LAB BLOOD ORDERAB LES Final Result Performing Organization Address [facility]/ZIP Co de Phone Number [facility] [address] [place] [phone] from Last 3 Months or Most Recently Relevant to Health Maintenance Insurance [place] MEDICAID STAND ADULT Care Teams Case Management Associate Relationship Specialty Start Date End Date Eleanor Treviño MD [address] [place] [address] PCP - General Internal Medicine 06/23/24 Lacey Mcmanus Cable OperatorTrucker 08/07/24
[2025-06-02 16:37] LABS: Hematocrit 46.2 % (42.0-52.0); Hemoglobin 15.0 g/dl (14.0-18.0); Mean Corpuscular HGB Conc 32.5 g/dl (31.0-36.0); Mean Corpuscular Hemoglobin 28.9 pg (27.0-33.0); Mean Corpuscular Volume 89.0 fL (80.0-98.0); NRBC Abs Auto 0.000 X10*3/uL (0.0-0.012); NRBC Pct Auto 0.0 /100WBC (0.0-0.2); Platelet Count 289 X10*3/uL (160-400); Red Blood Count 5.19 X10*6/uL (4.60-5.80); White Blood Count 8.5 X10*3/uL (4.8-10.8)
[2025-06-02 16:42] LABS: Total Hemoglobin (HGBA1C) 3755.0614 umol/L
[2025-06-02 17:24] LABS: Folate 7.4 ng/mL (> or = 4.0); Vitamin B12 321 pg/mL (200-900)
[2025-06-02 17:35] LABS: Alanine Aminotransferase 25 U/L (0-40); Albumin Level 4.6 g/dL (3.5-5.0); Alkaline Phosphatase 66 U/L (39-117); Anion Gap 12 (12-20); Aspartate Amino Transferase 21 U/L (5-37); Blood Urea Nitrogen 16 mg/dL (9-16); Calcium 9.8 mg/dL (8.4-10.2); Carbon Dioxide 28 mmol/L (22-29); Chloride 106 mmol/L (96-108); Cholesterol 177 mg/dL (<200); Estimated Glomerular Filt Rate > 60; HDL Cholesterol 34 mg/dL (>40); Potassium 4.5 mmol/L (3.3-5.1); Sodium 141 mmol/L (135-145); Total Protein 7.4 g/dL (6.5-8.0); Triglycerides 233 mg/dL (<150)
[2025-06-03 03:35] LABS: HBS Num1 > 1000.00 mIU/mL (0-7.99); HBc Num1 0.17 S/CO (0.00-0.79); HBsAGNum1 0.33 S/CO (0.00-0.99); Hepatitis B Surface Antigen Negative (Negative); ~Hepatitis B Surface Antibody REACTIVE (Nonreactive)
== END 2025-06-02 13:33 | disposition home or self-care (01) ==
LOC: HO.HHCL 13:32
PROVIDERS: Visit Provider Student in an Organized Health Care Education/Training Program
DX: Z00.00 Encounter for general adult medical examination without abnormal findings (principal)
CPT/HCPCS: 80053; 80061; 82306; 82607; 82746; 83036; 84443; 85027; 86704; 86706; 87340